=== PATIENT | female | born 1950 | race Caucasian/White ===

== ENCOUNTER 2019-08-09 12:12 | Inpatient (IN) | payer MEDICARE, OTHER, SELFPAY ==
[2019-08-09] VITALS (24 sets, daily range): BP systolic 101–141; BP diastolic 51–73; PULSE 66–99; RESP 13–22; TEMP 36.6–38.1; O2SAT 93–100; BMI 25.2; BMI 26.7
--- NOTE | 2019-08-09 12:24 | CTR_ITS ---
PROCEDURE INFORMATION: Exam: CT Lumbar Spine Without Contrast Exam date and time: 08/09/2019 1:46 PM Age: 69 years old Clinical indication: Low back pain; Prior surgery TECHNIQUE: Imaging protocol: Computed tomography images of the lumbar spine without contrast. Radiation optimization: All CT scans at this facility use at least one of these dose optimization techniques: automated exposure control; mA and/or kV adjustment per patient size (includes targeted exams where dose is matched to clinical indication); or iterative reconstruction. COMPARISON: MRI Lumbar Spine w/o [id number] 07/05/2018 1:56 PM RADIATION DOSE METRICS: Total DLP (mGy-cm): 1388.91 FINDINGS: Tubes, catheters and devices: Interval placement of metallic disc spacer at L4-L5. Vertebrae: Left L4-L5 laminectomy. Discs/Spinal canal/Neural foramina: Interval placement of L4-L5 posterior pedicular screws with vertical stabilization bars. Interval placement of bone graft material over the posterior lateral portions of the L4-L5 vertebrae. Vasculature: Calcification of the abdominal aorta and/or iliac arteries consistent with atherosclerotic vessel disease. Soft tissues: Unremarkable. CT/CT lumbar spine wo con* [id number] IMPRESSION: 1. Interval placement of L4-L5 posterior pedicular screws with vertical stabilization bars. 2. Interval placement of metallic disc spacer at L4-L5. 3. Interval placement of bone graft material over the posterior lateral portions of the L4-L5 vertebrae. 4. Left L4-L5 laminectomy. Radiation Dose CTDIVOL = (mGy): DLP = 1388.91 (mGy-cm)
--- NOTE | 2019-08-09 12:24 | CTR_ITS ---
PROCEDURE INFORMATION: Exam: CT Abdomen And Pelvis With Contrast Exam date and time: 08/09/2019 1:37 PM Age: 69 years old Clinical indication: Abdominal pain; Flank; Right TECHNIQUE: Imaging protocol: Computed tomography of the abdomen and pelvis with intravenous contrast. Radiation optimization: All CT scans at this facility use at least one of these dose optimization techniques: automated exposure control; mA and/or kV adjustment per patient size (includes targeted exams where dose is matched to clinical indication); or iterative reconstruction. Contrast material: VISI 320; Contrast volume: 95 ml; Contrast route: INTRAVENOUS (IV); COMPARISON: CR Hip 1v RIGHT wwo Pelvis [id number] 11/05/2014 3:21 PM RADIATION DOSE METRICS: Total DLP (mGy-cm): 675.29 FINDINGS: Lungs: Mild right basilar atelectasis and/or pneumonia. Liver: Normal. No mass. Gallbladder and bile ducts: Normal. No calcified stones. No ductal dilation. Pancreas: Normal. No ductal dilation. Spleen: 14.5 cm mild splenomegaly. Adrenals: Normal. No mass. Kidneys and ureters: Normal. No hydronephrosis. Stomach and bowel: Unremarkable. No obstruction. No mucosal thickening. Appendix: No evidence of appendicitis. Intraperitoneal space: Unremarkable. No free air. No significant fluid collection. Vasculature: Calcification of the abdominal aorta and/or iliac arteries consistent with atherosclerotic vessel disease. Lymph nodes: Calcified right hilar nodes and/or mediastinal nodes and/or lung granulomas consistent with old granulomatous disease. Bladder: Unremarkable as visualized. Reproductive: Status post hysterectomy. Bones/joints: Postoperative changes over the lumbar spine with metallic fixation and metallic artifact. Soft tissues: Unremarkable. Other findings: Examination is limited secondary to motion artifact. CT/CT abdomen pelvis w con* [id number] IMPRESSION: 14.5 cm mild splenomegaly. Radiation Dose CTDIVOL = (mGy): DLP = 675.29 (mGy-cm)
--- NOTE | 2019-08-09 12:59 | W.ED.BACK ---
HPI - Back Pain/Injury General: Chief Complaint: Back Pain/Injury Stated Complaint: FLANK PAIN Time Seen by Provider: 08/09/19 12:14 Source: patient Mode of arrival: ambulatory Limitations: no limitations History of Present Illness: HPI Narrative: Fernanda is a nice 69-year-old female who comes in complaining of pain across her lower back, lower abdominal pain. Denies any cough, shortness of breath but does admit to urinary frequency and urgency. She has had the symptoms for approximately 1 week and on Sunday, 4 days ago she saw Dr. Andrew Alfaro who placed her on Keflex for a UTI as she did test positive for this in the clinic. She states since then she is developed some diarrhea but denies any nausea or vomiting. She denies any vaginal discharge or bleeding. Patient states her pain is slightly worse and because of that she comes into the hospital for recheck. She is been unaware of any fevers or chills. Patient denies any other complaints or concerns. Associated symptoms: Reports abdominal pain, dysuria and urinary urgency; Deny chills, difficulty walking, fatigue, fever(s), hematuria, nausea, syncope or vomiting Review of Systems Const: Denies: fever(s), chills, body aches, fatigue, malaise or diaphoresis Eyes: Denies: change in vision, blurry vision, blind spots, photophobia, eye discharge or eye redness ENMT: Denies: throat pain, odynophagia, hoarseness, swelling of lips/tongue, oral sores, ear or mastoid pain, ear discharge, change in hearing or nasal discharge Card: Denies: chest pain, palpitations, irregular heart rhythm, edema, lightheadedness, syncope, pre-syncope, dyspnea on exertion or orthopnea Resp: Denies: dyspnea, productive cough, non-productive cough, wheezing, hemoptysis or chest congestion GI: Reports: abdominal pain; Denies: nausea, vomiting, hematemesis, coffee ground emesis, heartburn, constipation, GI cramping, hematochezia or melena : Reports: difficulty voiding, dysuria, urinary frequency, urinary urgency and urinary hesitancy; Denies: flank pain or hematuria Musc: Reports: back pain; Denies: neck pain, extremity pain, extremity swelling, joint pain, joint swelling, joint redness, joint warmth or joint stiffness Skin/Breast: Denies: rash, pruritus, erythema, skin tenderness or jaundice Neuro: Denies: headache(s), numbness in extremities, weakness in extremities, sensory changes, lack of coordination, difficulty walking, dizziness, vertigo, confusion, Slurred speech present or seizure-like activity Wilian/Lymph: Denies: easy bruising, easy bleeding, petechiae, purpura or enlarged lymph nodes All/Imm: Denies: urticaria, throat swelling, tongue swelling, facial swelling or acute wheezing PFSH ED PFSH: Medical History No pertinent past medical history Surgical History History of back surgery Family History Brother Lung cancer Other Diabetes Social History Smoking and tobacco status: former smoker Quit status (tobacco): has quit using tobacco Former quit date comment: October Alcohol intake: never Substance/Drug Use: never Lives independently: Yes Household members: spouse Marital status: Current occupational status: retired Physical Exam Const: COMMON NORMALS: no acute distress, patient oriented x3, no limitations, healthy appearing and well nourished GENERAL APPEARANCE: cooperative, well kempt and well developed HENMT: COMMON NORMALS: normocephalic, atraumatic, external ears normal, EAC's normal and Normal external nose present HEAD & SCALP: normal to inspection, normocephalic and atraumatic FACE & SINUS: normal facial exam and face symmetric NOSE: Normal external nose present and Normal nares present EXTERNAL EAR: Yes external ears normal EXTERNAL AUDITORY CANAL: EAC's normal MOUTH: Normal oral and palatal mucosa present, lip normal and tongue normal Eye: COMMON NORMALS: Equal, round and reactive pupils present and conjunctivae normal GENERAL EYE: appearance normal, both eyes and all related structures ALIGNMENT: Yes alignment normal PERIORBITAL: periorbital findings normal EYELID: eyelids normal CONJUNCTIVA: Yes conjunctivae normal SCLERA: sclerae normal PUPIL: Yes Equal, round and reactive pupils present Neck/C-Spine: COMMON NORMALS: full ROM, no lymphadenopathy, supple, no meningeal signs and no JVD GENERAL: Yes normal visual inspection and Yes trachea midline Chest: COMMONS NORMALS: normal inspection of the chest and normal palpation of entire chest wall Resp: COMMON NORMALS: normal respiratory effort, No retractions and No use of accessory muscles EFFORT & INSPECTION: Yes able to speak in complete sentences and Yes symmetric chest movement AUSCULTATION: no crackles, no rales, no rhonchi and no wheezes Cardio: COMMON NORMALS: no JVD, regular rate, regular rhythm, S1 normal heart sound present and S2 normal heart sound present RATE: regular rate RHYTHM: regular rhythm HEART SOUNDS: S1 normal heart sound present, S2 normal heart sound present, no click, no gallops, no murmurs, no rubs and abnormal split S2 GI: COMMON NORMALS: Soft to palpation and No hepatosplenomegaly present PALPATION: Yes Soft to palpation, No Tenderness to palpation present (GI), No Guarding due to palpation present (GI), No Rigid due to palpation, Yes No hepatosplenomegaly present, No Hernia present, No Palpable mass present and No Pulsatile mass present : COMMON NORMALS: Yes no CVA tenderness BLADDER/KIDNEY EXAM: Yes no CVA tenderness EXTERNAL FEMALE EXAM: No Hernia present Back/Pelvis: COMMON NORMALS: no CVA tenderness, thoracic and lumbar spine normal to inspection, no thoracic nor lumbar tenderness and thoraco-lumbar ROM normal Extremity: COMMON NORMALS: normal to inspection, full ROM, capillary refill normal, no joint enlargement, no clubbing, cyanosis or edema and no calf tenderness Neuro: COMMON NORMALS: patient oriented x3, CN's II-XII intact bilaterally, moves all extremities, no focal motor deficits and no sensory deficits noted MENINGEAL SIGNS: Yes no meningeal signs SPEECH: speech normal Psych: COMMON NORMALS: mental status grossly normal, Normal thought process present, cooperative, normal affect, speech normal and activity/motor behavior normal APPEARANCE: Yes well kempt SPEECH: Yes normal speech THOUGHT PROCESS: Normal thought process present Skin: COMMON NORMALS: no rashes or lesions noted, turgor normal, no jaundice, no petechiae and no mottling GENERAL SKIN EXAM: no rashes or lesions noted and turgor normal Course Vital Signs: Vital signs: Vital Signs Temperature 100.5 F H 08/09/19 12:33 Pulse Rate 82 07/04/20 12:40 Respiratory Rate 17 08/09/19 16:36 Blood Pressure 133/70 08/09/19 12:40 Pulse Oximetry 96 08/09/19 16:36 MDM - Back Pain/Injury MDM Narrative: Medical decision making narrative: The patient appears to have a tickborne illness type pattern to her labs. The case was reviewed in its entirety with Dr. Gaviria and he is agreeable to admission. Lab Data: Attestation: I reviewed the patient's lab results. Labs: Lab Results 08/09/19 08/09/19 08/09/19 Range/Units 12:57 12:57 12:57 WBC 2.3 L (4.0-10.0) 10^3/ uL RBC 4.34 (4.1-5.3) 10^6/u L Hgb 13.3 (11.5-15.3) g/dL Hct 38.4 (37.0-47.0) % MCV 88.5 (81-99) fL MCH 30.6 (28.0-34.0) pg MCHC 34.6 (30.0-36.0) g/dL RDW 12.9 (12.1-15.1) % Plt Count 31 L (130-400) 10^3/c mm MPV 13.0 H (7.4-10.4) fL Neut % (Auto) 36.3 % Lymph % (Auto) 55.6 % [place] % (Auto) 6.8 % Eos % (Auto) 0.0 % Baso % (Auto) 0.9 % Neut # (Auto) 0.9 L (1.8-7.7) 10^3/u L Lymph # (Auto) 1.3 (0.8-4.8) 10^3/u L [place] # (Auto) 0.2 (0.2-0.9) 10^3/u L Eos # (Auto) 0.0 (0.0-0.8) 10^3/u L Baso # (Auto) 0.0 (0.0-0.1) 10^3/u L Nucleated RBC % (a uto) 0 % Nucleated RBCs # 0.0 /100WBC Sodium 121 L (136-145) mmol/L Potassium 3.6 (3.5-5.1) mmol/L Chloride 87 L (98-107) mmol/L Carbon Dioxide 20 L (22-29) mmol/L Anion Gap 17.6 (5-19) BUN 16 (8-23) mg/dL Creatinine 1.0 H (0.5-0.9) mg/dL GFR Calculation 55.3 L (90-130) mL/min Glucose 99 (65-115) mg/dL Calculated Osmolal ity 248 L (285-295) mOsm/k g Lactic Acid 1.0 (0.5-2.2) mmol/L Calcium 8.6 (8.5-10.5) mg/dL Total Bilirubin 0.6 (0.15-1.2) mg/dL AST 116 H (0-32) U/L ALT 46 H (0-33) U/L Alkaline Phosphata se 270 H (35-105) IU/L Creatine Kinase (26-192) U/L Total Protein 6.1 L (6.6-8.7) g/dL Albumin 3.7 (3.5-5.2) g/dL Globulin 2.4 (1.3-4.6) g/dL Lipase 38 (13-60) U/L Urine Color (Yellow) Urine Appearance (CLEAR) Urine pH (5-7) Ur Specific Gravit y (1.005-1.030) Urine Protein (Negative) Urine Glucose (UA) (Normal) Urine Ketones (Negative) Urine Blood (Negative) Urine Nitrate (Negative) Urine Bilirubin (NEGATIVE) Urine Urobilinogen (Negative) mg/dL Ur Leukocyte Yudith ase (Negative) Urine RBC (0-2) /hpf Urine WBC (0-5) /hpf Ur Squamous Epith Cells (0-5) Urine Bacteria (NONE) 08/09/19 08/09/19 Range/Units 12:57 13:45 WBC (4.0-10.0) 10^3/ uL RBC (4.1-5.3) 10^6/u L Hgb (11.5-15.3) g/dL Hct (37.0-47.0) % MCV (81-99) fL MCH (28.0-34.0) pg MCHC (30.0-36.0) g/dL RDW (12.1-15.1) % Plt Count (130-400) 10^3/c mm MPV (7.4-10.4) fL Neut % (Auto) % Lymph % (Auto) % [place] % (Auto) % Eos % (Auto) % Baso % (Auto) % Neut # (Auto) (1.8-7.7) 10^3/u L Lymph # (Auto) (0.8-4.8) 10^3/u L [place] # (Auto) (0.2-0.9) 10^3/u L Eos # (Auto) (0.0-0.8) 10^3/u L Baso # (Auto) (0.0-0.1) 10^3/u L Nucleated RBC % (a uto) % Nucleated RBCs # /100WBC Sodium (136-145) mmol/L Potassium (3.5-5.1) mmol/L Chloride (98-107) mmol/L Carbon Dioxide (22-29) mmol/L Anion Gap (5-19) BUN (8-23) mg/dL Creatinine (0.5-0.9) mg/dL GFR Calculation (90-130) mL/min Glucose (65-115) mg/dL Calculated Osmolal ity (285-295) mOsm/k g Lactic Acid (0.5-2.2) mmol/L Calcium (8.5-10.5) mg/dL Total Bilirubin (0.15-1.2) mg/dL AST (0-32) U/L ALT (0-33) U/L Alkaline Phosphata se (35-105) IU/L Creatine Kinase 124 (26-192) U/L Total Protein (6.6-8.7) g/dL Albumin (3.5-5.2) g/dL Globulin (1.3-4.6) g/dL Lipase (13-60) U/L Urine Color Yellow (Yellow) Urine Appearance Clear (CLEAR) Urine pH 6.5 (5-7) Ur Specific Gravit y 1.010 (1.005-1.030) Urine Protein 1+ H (Negative) Urine Glucose (UA) Norm (Normal) Urine Ketones 1+ H (Negative) Urine Blood 2+ H (Negative) Urine Nitrate Negative (Negative) Urine Bilirubin Neg (NEGATIVE) Urine Urobilinogen Norm (Negative) mg/dL Ur Leukocyte Yudith ase Negative (Negative) Urine RBC 0-4 H (0-2) /hpf Urine WBC None (0-5) /hpf Ur Squamous Epith Cells 0-4 H (0-5) Urine Bacteria Trace (NONE) Imaging Data^: CXR: My impression: No acute cardiopulmonary findings. CT Abd/Pel: Radiologist's impression: [address] [address] [address] Scan Report Signed Patient: Yenifer Price Unit #: [id number] : 1950 Age/Sex: 69 / F ADM Date: 08/09/19 Loc: ER Room/Bed: Attending Dr: Ordering Provider/Ordering MD: Macy Pascal DO Date of Service: 08/09/19 Procedure(s): CT abdomen pelvis w con* [id number] Accession Number(s): [id number] Report Number: [id number] PROCEDURE INFORMATION: Exam: CT Abdomen And Pelvis With Contrast Exam date and time: 08/09/2019 1:37 PM Age: 69 years old Clinical indication: Abdominal pain; Flank; Right TECHNIQUE: Imaging protocol: Computed tomography of the abdomen and pelvis with intravenous contrast. Radiation optimization: All CT scans at this facility use at least one of these dose optimization techniques: automated exposure control; mA and/or kV adjustment per patient size (includes targeted exams where dose is matched to clinical indication); or iterative reconstruction. Contrast material: VISI 320; Contrast volume: 95 ml; Contrast route: INTRAVENOUS (IV); COMPARISON: CR Hip 1v RIGHT wwo Pelvis [id number] 11/05/2014 3:21 PM RADIATION DOSE METRICS: Total DLP (mGy-cm): 675.29 FINDINGS: Lungs: Mild right basilar atelectasis and/or pneumonia. Liver: Normal. No mass. Gallbladder and bile ducts: Normal. No calcified stones. No ductal dilation. Pancreas: Normal. No ductal dilation. Spleen: 14.5 cm mild splenomegaly. Adrenals: Normal. No mass. Kidneys and ureters: Normal. No hydronephrosis. Stomach and bowel: Unremarkable. No obstruction. No mucosal thickening. Appendix: No evidence of appendicitis. Intraperitoneal space: Unremarkable. No free air. No significant fluid collection. Vasculature: Calcification of the abdominal aorta and/or iliac arteries consistent with atherosclerotic vessel disease. Lymph nodes: Calcified right hilar nodes and/or mediastinal nodes and/or lung granulomas consistent with old granulomatous disease. Bladder: Unremarkable as visualized. Reproductive: Status post hysterectomy. Bones/joints: Postoperative changes over the lumbar spine with metallic fixation and metallic artifact. Soft tissues: Unremarkable. Other findings: Examination is limited secondary to motion artifact. CT/CT abdomen pelvis w con* [id number] IMPRESSION: 14.5 cm mild splenomegaly. Radiation Dose CTDIVOL = (mGy): DLP = 675.29 (mGy-cm) Dictated By: Sulaiman Hurley MD Signed By: Sulaiman Hurley MD Signed Date/Time: 08/09/191427 DD/ 27 CT Lumbar Spine: Radiologist's impression: [address] [place] [address] CT Scan Report Signed Patient: Yenifer Price Unit #: [id number] : 1950 Age/Sex: 69 / F ADM Date: 08/09/19 Loc: ER Room/Bed: Attending Dr: Ordering Provider/Ordering MD: Macy Pascal DO Date of Service: 08/09/19 Procedure(s): CT lumbar spine wo con* [id number] Accession Number(s): [id number] Report Number: [id number] PROCEDURE INFORMATION: Exam: CT Lumbar Spine Without Contrast Exam date and time: 08/09/2019 1:46 PM Age: 69 years old Clinical indication: Low back pain; Prior surgery TECHNIQUE: Imaging protocol: Computed tomography images of the lumbar spine without contrast. Radiation optimization: All CT scans at this facility use at least one of these dose optimization techniques: automated exposure control; mA and/or kV adjustment per patient size (includes targeted exams where dose is matched to clinical indication); or iterative reconstruction. COMPARISON: MRI Lumbar Spine w/o [id number] 07/05/2018 1:56 PM RADIATION DOSE METRICS: Total DLP (mGy-cm): 1388.91 FINDINGS: Tubes, catheters and devices: Interval placement of metallic disc spacer at L4-L5. Vertebrae: Left L4-L5 laminectomy. Discs/Spinal canal/Neural foramina: Interval placement of L4-L5 posterior pedicular screws with vertical stabilization bars. Interval placement of bone graft material over the posterior lateral portions of the L4-L5 vertebrae. Vasculature: Calcification of the abdominal aorta and/or iliac arteries consistent with atherosclerotic vessel disease. Soft tissues: Unremarkable. CT/CT lumbar spine wo con* [id number] IMPRESSION: 1. Interval placement of L4-L5 posterior pedicular screws with vertical stabilization bars. 2. Interval placement of metallic disc spacer at L4-L5. 3. Interval placement of bone graft material over the posterior lateral portions of the L4-L5 vertebrae. 4. Left L4-L5 laminectomy. Radiation Dose CTDIVOL = (mGy): DLP = 1388.91 (mGy-cm) Dictated By: Sulaiman Hurley MD Signed By: Sulaiman Hurley MD Signed Date/Time: 08/09/191425 DD/ 24 Discharge Plan Discharge Patient Disposition: Placed in Observation Admit Provider: Hardik Gaviria Clinical Impression: Thrombocytopenia Fever Qualifiers: Fever type: unspecified Qualified Code(s): R50.9 - Fever, unspecified Leukopenia Qualifiers: Leukopenia type: unspecified Qualified Code(s): D72.819 - Decreased white blood cell count, unspecified Condition: Stable Referrals: Andrew Alfaro DO [Primary Care Provider] - Coding Level of Care Code 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
[2019-08-09 13:22] LABS: Basophils % 0.9 %; Hematocrit 38.4 % (37.0-47.0); Hemoglobin 13.3 g/dL (11.5-15.3); Lymphocytes # 1.3 10^3/uL (0.8-4.8); Lymphocytes % 55.6 %; Mean Corpuscular HGB Conc 34.6 g/dL (30.0-36.0); Mean Corpuscular Hemoglobin 30.6 pg (28.0-34.0); Mean Corpuscular Volume 88.5 fL (81-99); Monocytes # 0.2 10^3/uL (0.2-0.9); Monocytes % 6.8 %; Neutrophils # 0.9 10^3/uL (1.8-7.7); Neutrophils % 36.3 %; Nucleated Red Blood Cells % 0 %; Platelet Count 31 10^3/cmm (130-400); Red Blood Count 4.34 10^6/uL (4.1-5.3); Red Cell Distribution Width 12.9 % (12.1-15.1); White Blood Count 2.3 10^3/uL (4.0-10.0)
[2019-08-09 13:30] LABS: Alanine Aminotransferase 46 U/L (0-33); Albumin Level 3.7 g/dL (3.5-5.2); Alkaline Phosphatase 270 IU/L (35-105); Anion Gap 17.6 (5-19); Aspartate Amino Transferase 116 U/L (0-32); Blood Urea Nitrogen 16 mg/dL (8-23); Calcium 8.6 mg/dL (8.5-10.5); Carbon Dioxide 20 mmol/L (22-29); Chloride 87 mmol/L (98-107); Globulin 2.4 g/dL (1.3-4.6); Glomerular Filtration Rate 55.3 mL/min (90-130); Glucose 99 mg/dL (65-115); Lipase 38 U/L (13-60); Osmolality Calculated 248 mOsm/kg (285-295); Potassium 3.6 mmol/L (3.5-5.1); Sodium 121 mmol/L (136-145); Total Bilirubin 0.6 mg/dL (0.15-1.2); Total Protein 6.1 g/dL (6.6-8.7)
--- NOTE | 2019-08-09 13:42 | XRR_ITS ---
PROCEDURE INFORMATION: Exam: XR Chest, 1 View Exam date and time: 08/09/2019 1:42 PM Age: 69 years old Clinical indication: Fever TECHNIQUE: Imaging protocol: XR of the chest Views: 1 view. COMPARISON: CR Chest 2 views* [id number] 01/22/2018 11:53 AM FINDINGS: Lungs: Stable COPD . Possible 1.6 x 2.6 cm pulmonary nodule over the medial aspect right lung apex. Correlation with CT chest may be helpful. Pleural space: Unremarkable. No pleural effusion. No pneumothorax. Heart/Mediastinum: Unremarkable. No cardiomegaly. Bones/joints: Unremarkable. Other findings: Stable post operative changes over the cervical spine. XR/XR chest 1V portable [id number] IMPRESSION: Possible 1.6 x 2.6 cm pulmonary nodule over the medial aspect right lung apex. Correlation with CT chest may be helpful.
[2019-08-09] MEDS: ondansetron 2 mg/ML SDV 2 mL 4 MG IVP ×2 (13:56→13:58)
[2019-08-09] MEDS: morphine 4 mg/mL SDV 1 mL IVP ×2 (13:57→16:36)
[2019-08-09] MEDS: sodium chloride 0.9% 1,000 ML 999 ML IV (13:58)
[2019-08-09] MEDS: iodixanol 320 mg/mL 100mL Btl IV (14:10)
[2019-08-09 14:27] LABS: Slide Review Slide Review Perform
[2019-08-09 14:50] LABS: Bilirubin Urine Neg (NEGATIVE); Blood Urine 2+ (Negative); Glucose Urine UA Norm (Normal); Ketones Urine 1+ (Negative); Leukocyte Esterase Urine Negative (Negative); Nitrate Urine Negative (Negative); Protein Urine 1+ (Negative); Urine Appearance Clear (CLEAR); Urine Color Yellow (Yellow); Urobilinogen Urine Norm (Negative); pH Urine 6.5 (5-7)
[2019-08-09 15:03] LABS: Add Urine Culture? No; Bacteria Urine TRACE; RBC Urine 0-4 /hpf (0-2); Squamous Epithelial Cell Urine 0-4 (0-5)
[2019-08-09] MEDS: doxycycline 100 MG in sodium chloride 0.9% (plus) 100 ML IV (16:05)
[2019-08-09] MEDS: piperacillin-tazobactam 3.375 GM in sodium chloride 0.9% (plus) 50 ML IV (16:35)
[2019-08-09 16:45] LABS: LAB Peripheral Smear Sent for Review
--- NOTE | 2019-08-09 17:01 | PM.HP ---
Providers/Chief Complaint Admitting Physician: Hardik Gaviria Primary Care Provider: Andrew Alfaro DO Chief Complaint: FLANK PAIN History of Present Illness Yenifer Price is a pleasant 69 year old lady without significant past medical history apart from back surgery, has been experiencing malaise starting around Sunday, including fever recurrence going up to about 101. Due to this she was assessed by her primary care provider, and was prescribed Keflex for suspected urinary tract infection as she reported dark urine. She was tested for coronavirus as well, although was told would be getting a call likely on Sunday with the results, so far nobody had cold. She reports generalized muscle aches. She has been growing a small puppy at home, she denies any cat scratches, however. She has been going outside and has been finding multiple small ticks on herself. Review of Systems Const: Reports: fever(s), body aches, fatigue, malaise and other (Mild headache.) Eyes: Denies: change in vision or eye redness ENMT: Denies: throat pain, oral sores or ear or mastoid pain Card: Denies: chest pain, edema, pre-syncope or dyspnea on exertion Resp: Denies: dyspnea, productive cough, change in phlegm color or hemoptysis GI: Reports: diarrhea; Denies: abdominal pain, nausea, vomiting, constipation, hematochezia or melena : Denies: flank pain, urinary frequency or hematuria Musc: Denies: back pain, joint swelling or joint redness Skin/Breast: Denies: rash, sores or new lesions Neuro: Denies: headache(s), numbness in extremities, weakness in extremities, dizziness, confusion or seizure-like activity Endo: Denies: polyuria or polydipsia Wilian/Lymph: Denies: easy bleeding or purpura All/Imm: Denies: urticaria, throat swelling or tongue swelling Medications/Allergies Home Medications Medication Instructions Recorded Confirmed Last Taken Type cephalexin 500 mg PO TID 08/09/19 08/09/19 08/09/19 History Allergies Allergy/AdvReac Type Severity Reaction Status Date / Time codeine Allergy Unknown Unknown Verified 08/09/19 16:04 PFSH Acute PFSH: Medical History No pertinent past medical history Surgical History History of back surgery Family History Brother Lung cancer Other Diabetes Social History Smoking and tobacco status: former smoker Quit status (tobacco): has quit using tobacco Former quit date comment: October Alcohol intake: never Substance/Drug Use: never Lives independently: Yes Household members: spouse Marital status: Current occupational status: retired Vitals/I&O/Wt Last Vital Signs Temp 100.5 F H 08/09/19 12:33 Pulse 82 08/09/19 12:40 Resp 17 08/09/19 16:36 BP 133/70 08/09/19 12:40 Pulse Ox 96 08/09/19 16:36 Weight last 48 hrs Weight 62.596 kg Physical Exam Const: COMMON NORMALS: no acute distress and patient oriented x3 HENMT: COMMON NORMALS: oropharynx normal Neck/C-Spine: COMMON NORMALS: no JVD Resp: COMMON NORMALS: normal respiratory effort and clear to auscultation bilaterally AUSCULTATION: clear to auscultation bilaterally Cardio: COMMON NORMALS: no JVD, regular rhythm, S1 normal heart sound present, S2 normal heart sound present and No murmurs present (Cardio) RHYTHM: regular rhythm HEART SOUNDS: S1 normal heart sound present and S2 normal heart sound present GI: COMMON NORMALS: Normal to inspection, nondistended, normoactive bowel sounds present, Soft to palpation and non-tender PALPATION: Yes Soft to palpation Extremity: COMMON NORMALS: no joint enlargement and no pedal edema Neuro: COMMON NORMALS: patient oriented x3 and moves all extremities Skin: COMMON NORMALS: no rashes or lesions noted GENERAL SKIN EXAM: no rashes or lesions noted Data : 08/09/19 12:57 08/09/19 12:57 Micro: Microbiology 08/09/19 12:50 Blood Culture - Preliminary Blood SPECIMEN COLLECTED 08/09/19 12:57 Blood Culture - Preliminary Blood SPECIMEN COLLECTED A&P Assessment and plan (1) Fever: Fever, here up to 100.5, leukopenia WBC 2.3. Also with noted transaminitis, mild splenomegaly, thrombocytopenia. With multiple recent tick bites. Suspected tickborne illness. Did report an episode of diarrhea. T bili is normal. Reports dark urine. Hemoglobin is normal. Request LDH, haptoglobin. Peripheral smear. Tick panel is requested. Will request stool studies for bacterial panel, ova and parasites. WBC. Blood culture. Continue only doxycycline for now. Received a dose of Zosyn. Status: Acute Qualifiers: Fever type: unspecified Qualified Code(s): R50.9 - Fever, unspecified (2) Leukopenia: As above. Status: Acute Qualifiers: Leukopenia type: unspecified Qualified Code(s): D72.819 - Decreased white blood cell count, unspecified (3) Thrombocytopenia: As above. With mild splenomegaly. Only CD for DVT prophylaxis. Monitor level. Follow-up peripheral smear. Status: Acute (4) Transaminitis: 2-1 ratio, but does not drink any alcohol. Check CK. Monitor levels. Check hepatitis panel. No biliary issues noted on CT abdomen pelvis. Status: Acute (5) Hyponatremia: Regular diet for now. Will recheck. Will hold further IV hydration for now. Chronicity is unclear. At this time is not symptomatic. Status: Acute (6) Person under investigation for COVID-19: COVID-19 test sent out last week. States that was told may receive results on Sunday, but did not receive any phone call. ER physician attempted to reach out to her PCP but PCP was not aware of COVID 19 results. Patient has been are not aware what lab the test was sent to. We will keep under isolation for now. Will need to investigate tomorrow or last resort on Sunday with regards to test results. Status: Acute Attestations Medical Necessity Statement*: Admission of over 2 midnights continued for assessment management of acute illness with fever, leukopenia, thrombocytopenia, transaminitis, hyponatremia in this previously healthy 69-year-old lady. 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
[2019-08-09 17:04] LABS: Creatine Phosphokinase 124 U/L (26-192)
[2019-08-09 18:15] LABS: HIV 1 & 2 Antibody Non-Reactive (Non-Reactiv); HIV 1 & 2 Antigen Non-Reactive (Non-Reactiv)
[2019-08-09 18:16] LABS: Hepatitis A Antibody IgM Non-Reactive (Nonreactive); Hepatitis B Core IgM Non-Reactive (Nonreactive); Hepatitis B Surface Antigen Non-Reactive (Nonreactive)
[2019-08-09 19:03] LABS: Hepatitis C Virus Antibody Non-Reactive (Nonreactive)
[2019-08-09 20:16] LABS: Lactate Dehydrogenase 671 U/L (135-214)
[2019-08-10] VITALS (40 sets, daily range): BP systolic 82–151; BP diastolic 60–78; PULSE 63–110; RESP 14–32; TEMP 36.4–37.1; O2SAT 92–99
[2019-08-10 04:07] LABS: INR 0.88 (0.8-1.2)
[2019-08-10 04:08] LABS: Partial Thromboplastin Time 32.5 SECONDS (23.9-36.7)
[2019-08-10 04:21] LABS: Alanine Aminotransferase 59 U/L (0-33); Albumin Level 3.6 g/dL (3.5-5.2); Alkaline Phosphatase 247 IU/L (35-105); Anion Gap 18.6 (5-19); Aspartate Amino Transferase 121 U/L (0-32); Blood Urea Nitrogen 17 mg/dL (8-23); Calcium 8.8 mg/dL (8.5-10.5); Carbon Dioxide 19 mmol/L (22-29); Chloride 93 mmol/L (98-107); Globulin 2.3 g/dL (1.3-4.6); Glomerular Filtration Rate 55.3 mL/min (90-130); Glucose 87 mg/dL (65-115); Osmolality Calculated 260 mOsm/kg (285-295); Potassium 3.6 mmol/L (3.5-5.1); Sodium 127 mmol/L (136-145); Total Bilirubin 0.5 mg/dL (0.15-1.2); Total Protein 5.9 g/dL (6.6-8.7)
[2019-08-10 07:55] LABS: Basophils # 0.1 10^3/uL (0.0-0.1); Basophils % 2.1 %; Hemoglobin 13.1 g/dL (11.5-15.3); Lymphocytes # 2.6 10^3/uL (0.8-4.8); Lymphocytes % 67.4 %; Mean Corpuscular HGB Conc 34.5 g/dL (30.0-36.0); Mean Corpuscular Hemoglobin 30.8 pg (28.0-34.0); Mean Corpuscular Volume 89.4 fL (81-99); Monocytes # 0.3 10^3/uL (0.2-0.9); Monocytes % 6.7 %; Neutrophils # 0.9 10^3/uL (1.8-7.7); Neutrophils % 23.5 %; Nucleated Red Blood Cells % 0 %; Platelet Count 38 10^3/cmm (130-400); Red Blood Count 4.25 10^6/uL (4.1-5.3); Red Cell Distribution Width 13.3 % (12.1-15.1); White Blood Count 3.9 10^3/uL (4.0-10.0)
--- NOTE | 2019-08-10 09:17 | PM.PN ---
Subjective Subjective: Interval history: This morning she states she is actually feeling better. Diffuse muscle aches have let up. She is still having some ill-defined aching sensation in her back. Says that stools are firming up. Has had a difficult time to provide a stool sample is not mixed with urine. Vitals/I&O/Wt Last Vital Signs Temp 98.3 F 08/10/19 03:30 Pulse 79 08/10/19 05:30 Resp 23 H 08/10/19 05:30 BP 82/64 08/10/19 05:30 Pulse Ox 97 08/10/19 05:30 08/09/19 08/10/19 08/10/19 22:59 06:59 14:59 Intake Total 240 / 240 360 / 600 Output Total 500 / 500 Balance -260 / -260 360 / 100 Weight last 48 hrs Weight 66.281 kg Weight 62.596 kg Physical Exam Const: COMMON NORMALS: no acute distress and patient oriented x3 HENMT: COMMON NORMALS: oropharynx normal Neck/C-Spine: COMMON NORMALS: no JVD Resp: COMMON NORMALS: normal respiratory effort and clear to auscultation bilaterally AUSCULTATION: clear to auscultation bilaterally Cardio: COMMON NORMALS: no JVD, regular rhythm, S1 normal heart sound present, S2 normal heart sound present and No murmurs present (Cardio) RHYTHM: regular rhythm HEART SOUNDS: S1 normal heart sound present and S2 normal heart sound present GI: COMMON NORMALS: Normal to inspection, nondistended, normoactive bowel sounds present, Soft to palpation and non-tender PALPATION: Yes Soft to palpation Extremity: COMMON NORMALS: no joint enlargement and no pedal edema Neuro: COMMON NORMALS: patient oriented x3 and moves all extremities Skin: OTHER: Few faint petechiae on lower extremities. Data : 08/10/19 07:07 08/10/19 03:12 Micro: Microbiology 08/09/19 12:50 Blood Culture - Preliminary Blood SPECIMEN COLLECTED 08/09/19 12:57 Blood Culture - Preliminary Blood SPECIMEN COLLECTED A&P Assessment and plan (1) Fever: Resolved. On presentation fever, here up to 100.5, leukopenia WBC 2.3. Also with noted transaminitis, mild splenomegaly, thrombocytopenia. With multiple recent tick bites. Suspected tickborne illness. However, discussed with her cannot entirely exclude TTP until we assess peripheral smear. She does have some hemolytic anemia. Does report diarrhea, although with stools firming up now. We have not been able to get a stool sample just yet. Requested Ramos catheter be placed temporarily if needed to collect a sample. She understands TTP is potentially dangerous condition, may require transfer to another facility for additional treatment. At this time since she is feeling better, and we are seeing stabilization of her laboratory findings and vital signs, she prefers to continue care here. T bili is normal. Reports dark urine. Hemoglobin is normal. LDH, haptoglobin suggestive of hemolysis. Peripheral smear. ALEJANDRA. Tick panel is requested. Stool studies for bacterial panel, ova and parasites. WBC. Blood culture. Continue only doxycycline for now. Received a dose of Zosyn. Status: Acute Qualifiers: Fever type: unspecified Qualified Code(s): R50.9 - Fever, unspecified (2) Leukopenia: With improvement. As above. Status: Acute Qualifiers: Leukopenia type: unspecified Qualified Code(s): D72.819 - Decreased white blood cell count, unspecified (3) Thrombocytopenia: With mild improvement today. As above. With mild splenomegaly. Only SCD for DVT prophylaxis. Monitor level. Follow-up peripheral smear. Status: Acute (4) Transaminitis: About the same, perhaps slight worsening. 2-1 ratio, but does not drink any alcohol. CK normal. Monitor levels. Hepatitis panel negative. No biliary issues noted on CT abdomen pelvis. Discussed with her. Status: Acute (5) Hyponatremia: Discussed with her that sodium is showing good improvement. For now continue regular diet. Hold off any additional IV hydration. Reassess level. Status: Acute (6) Person under investigation for COVID-19: I did not see the COVID-19 test listed under P[facility], and our lab is not able to access the results from [employer]. They or PCP office may need to be called on Sunday. Patient is not sure which lab it was sent to. We will keep under isolation for now. Status: Acute Attestations Medical Necessity Statement*: Continue admission at this time for assessment management of infectious condition suspected to be tickborne, and additional evaluation for hematologic problems, with severe thrombocytopenia, hyponatremia. 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
[2019-08-10] MEDS: acetaminophen 325 mg Tablet 650 MG PO (17:20)
--- NOTE | 2019-08-10 18:36 | PC.NURSE ---
PASSCODE SET UP [id number] WITH PT'S FAMILY
[2019-08-11] VITALS (13 sets, daily range): BP systolic 108–140; BP diastolic 63–70; PULSE 66–92; RESP 17–22; TEMP 36.5–36.9; O2SAT 93–98
[2019-08-11 04:05] LABS: Basophils # 0.1 10^3/uL (0.0-0.1); Basophils % 1.4 %; Hematocrit 38.5 % (37.0-47.0); Hemoglobin 13.1 g/dL (11.5-15.3); Lymphocytes # 5.7 10^3/uL (0.8-4.8); Lymphocytes % 82.6 %; Mean Corpuscular Hemoglobin 29.6 pg (28.0-34.0); Mean Corpuscular Volume 87.1 fL (81-99); Mean Platelet Volume 13.3 fL (7.4-10.4); Monocytes # 0.4 10^3/uL (0.2-0.9); Monocytes % 5.9 %; Nucleated Red Blood Cells % 0 %; Platelet Count 57 10^3/cmm (130-400); Positive M 1; Red Blood Count 4.42 10^6/uL (4.1-5.3); Red Cell Distribution Width 13.2 % (12.1-15.1)
[2019-08-11 04:22] LABS: Alanine Aminotransferase 54 U/L (0-33); Albumin Level 3.7 g/dL (3.5-5.2); Alkaline Phosphatase 222 IU/L (35-105); Anion Gap 15.7 (5-19); Aspartate Amino Transferase 98 U/L (0-32); Blood Urea Nitrogen 12 mg/dL (8-23); Carbon Dioxide 24 mmol/L (22-29); Chloride 99 mmol/L (98-107); Globulin 2.2 g/dL (1.3-4.6); Glomerular Filtration Rate 62.5 mL/min (90-130); Glucose 98 mg/dL (65-115); Osmolality Calculated 276 mOsm/kg (285-295); Potassium 3.7 mmol/L (3.5-5.1); Sodium 135 mmol/L (136-145); Total Bilirubin 0.4 mg/dL (0.15-1.2); Total Protein 5.9 g/dL (6.6-8.7)
[2019-08-11 04:39] LABS: Neutrophils # 0.7 10^3/uL (1.8-7.7); Slide Review Slide Review Perform
[2019-08-11] MEDS: doxycycline 100 mg Tablet PO ×2 (07:51→18:11)
[2019-08-11 07:53] LABS: LAB Peripheral Smear Sent for Review
--- NOTE | 2019-08-11 17:15 | PM.PN ---
Subjective Subjective: Interval history: This morning patient states that she is doing much better, her myalgias have significantly improved, no fevers, she does state [place], and commonly picks ticks off of herself, denies eating any raw meat, no new medications, Vitals/I&O/Wt Last Vital Signs Temp 97.7 F 08/11/19 11:00 Pulse 77 08/11/19 14:46 Resp 18 08/11/19 14:46 BP 132/70 08/11/19 14:46 Pulse Ox 96 08/11/19 14:46 08/11/19 08/11/19 08/11/19 06:59 14:59 22:59 Intake Total 1040 / 1040 Output Total 900 / 2700 900 / 900 Balance -900 / -932 140 / 140 Weight last 48 hrs Weight 66.224 kg Weight 66.281 kg Physical Exam Const: COMMON NORMALS: no acute distress and patient oriented x3 HENMT: COMMON NORMALS: normocephalic HEAD & SCALP: normocephalic Neck/C-Spine: COMMON NORMALS: no JVD Resp: COMMON NORMALS: normal respiratory effort, No retractions, No use of accessory muscles and clear to auscultation bilaterally AUSCULTATION: clear to auscultation bilaterally Cardio: COMMON NORMALS: no JVD, regular rate, regular rhythm, S1 normal heart sound present and S2 normal heart sound present RATE: regular rate RHYTHM: regular rhythm HEART SOUNDS: S1 normal heart sound present and S2 normal heart sound present GI: COMMON NORMALS: Normal to inspection, nondistended, normoactive bowel sounds present, Soft to palpation, non-tender, No hepatosplenomegaly present, no masses and no bruits PALPATION: Yes Soft to palpation and Yes No hepatosplenomegaly present Extremity: COMMON NORMALS: capillary refill normal, no clubbing, cyanosis or edema, no calf tenderness and no pedal edema Neuro: COMMON NORMALS: patient oriented x3 Psych: COMMON NORMALS: mental status grossly normal Data : 08/11/19 03:44 08/11/19 03:44 Micro: Microbiology 08/10/19 09:23 Parasite Antigen Panel - Final Stool Routine Collection 08/09/19 12:50 Blood Culture - Preliminary Blood NEGATIVE TO DATE 08/09/19 12:57 Blood Culture - Preliminary Blood NEGATIVE TO DATE 08/10/19 09:23 Enteric Pathogens (PCR) - Final Stool Routine Collection A&P Assessment and plan (1) Fever: Fever, here up to 100.5 on 08/09/2019 afebrile since then, leukopenia resolving 7.0. Also with noted transaminitis, mild splenomegaly, thrombocytopenia. With multiple recent tick bites. Suspected tickborne illness. Did report an episode of diarrhea. Start doxycycline T bili is normal. Reports dark urine. Hemoglobin is normal. Request LDH, haptoglobin. Peripheral smear. Tick panel is requested. Will request stool studies for bacterial panel, ova and parasites. WBC. Blood culture. Status: Acute Qualifiers: Fever type: unspecified Qualified Code(s): R50.9 - Fever, unspecified (2) Leukopenia: Resolving Status: Acute Qualifiers: Leukopenia type: unspecified Qualified Code(s): D72.819 - Decreased white blood cell count, unspecified (3) Thrombocytopenia: As above. With mild splenomegaly. Only CD for DVT prophylaxis. Monitor level. Currently improving to 57,000 follow-up peripheral smear. Status: Acute (4) Transaminitis: 2-1 ratio, but does not drink any alcohol. Check CK. Monitor levels. Hepatitis panel within normal limits. HIV panel within normal limits. No biliary issues noted on CT abdomen pelvis. Status: Acute (5) Hyponatremia: Improved to 135, regular diet for now. Will recheck. Will hold further IV hydration for now. Chronicity is unclear. At this time is not symptomatic. Status: Acute (6) Person under investigation for COVID-19: COVID-19 test sent out last week. States that was told may receive results on Sunday, but did not receive any phone call. ER physician attempted to reach out to her PCP but PCP was not aware of COVID 19 results. Patient has been are not aware what lab the test was sent to. We will keep under isolation for now. Will need to investigate tomorrow or last resort on Sunday with regards to test results. 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
[2019-08-12] VITALS: PULSE 69; RESP 14; TEMP 36.7; O2SAT 96
[2019-08-12 02:00] VITALS: BP 135/75; PULSE 70; RESP 16; O2SAT 96
[2019-08-12 04:00] VITALS: BP 135/75; PULSE 72; RESP 15; O2SAT 95
[2019-08-12 05:51] LABS: Basophils % 0.5 %; Eosinophils % 0.1 %; Hematocrit 35.8 % (37.0-47.0); Hemoglobin 12.2 g/dL (11.5-15.3); Lymphocytes # 5.9 10^3/uL (0.8-4.8); Lymphocytes % 80.3 %; Mean Corpuscular HGB Conc 34.1 g/dL (30.0-36.0); Mean Corpuscular Hemoglobin 30.4 pg (28.0-34.0); Mean Corpuscular Volume 89.3 fL (81-99); Mean Platelet Volume 12.9 fL (7.4-10.4); Monocytes # 0.4 10^3/uL (0.2-0.9); Nucleated Red Blood Cells % 0 %; Platelet Count 69 10^3/cmm (130-400); Red Blood Count 4.01 10^6/uL (4.1-5.3); Red Cell Distribution Width 13.6 % (12.1-15.1); White Blood Count 7.3 10^3/uL (4.0-10.0)
[2019-08-12 06:32] LABS: Neutrophils # 0.9 10^3/uL (1.8-7.7)
[2019-08-12 06:33] LABS: Slide Review Slide Review Perform
[2019-08-12 06:45] LABS: INR 0.92 (0.8-1.2)
[2019-08-12 06:50] LABS: Alanine Aminotransferase 50 U/L (0-33); Albumin Level 3.4 g/dL (3.5-5.2); Alkaline Phosphatase 197 IU/L (35-105); Anion Gap 12.5 (5-19); Aspartate Amino Transferase 74 U/L (0-32); Blood Urea Nitrogen 12 mg/dL (8-23); C Reactive Protein 7.9 mg/L (0.0-4.9); Calcium 9.1 mg/dL (8.5-10.5); Carbon Dioxide 24 mmol/L (22-29); Chloride 104 mmol/L (98-107); Globulin 1.9 g/dL (1.3-4.6); Glomerular Filtration Rate 71.5 mL/min (90-130); Glucose 99 mg/dL (65-115); Magnesium 1.9 mg/dL (1.7-2.3); Osmolality Calculated 280 mOsm/kg (285-295); Phosphorus 3.2 mg/dL (2.5-4.5); Potassium 3.5 mmol/L (3.5-5.1); Sodium 137 mmol/L (136-145); Total Bilirubin 0.3 mg/dL (0.15-1.2); Total Protein 5.3 g/dL (6.6-8.7)
[2019-08-12 06:56] LABS: Procalcitonin 0.37 ng/mL (0-0.5)
[2019-08-12 07:07] LABS: Creatine Phosphokinase 13 U/L (26-192)
[2019-08-12 07:58] LABS: Erythrocyte Sedimentation Rate 11 mm/hr (0-15)
[2019-08-12 07:59] VITALS: BP 157/72; PULSE 68; RESP 19; TEMP 36.5; O2SAT 99
[2019-08-12 08:38] VITALS: BP 157/72; PULSE 68; RESP 19; TEMP 36.5; O2SAT 99
--- NOTE | 2019-08-12 08:49 | PC.SOCIAL ---
IM follow up given to patient by phone since she is currently under COVID precautions. She was tested at PCP office and result still pending. Pt verbalized understanding of IM but indicates she is ready to go home.
[2019-08-12] MEDS: doxycycline 100 mg Tablet PO (08:58)
--- NOTE | 2019-08-12 09:14 | PC.NURSE ---
PT UP AD LAURA IN ROOM. PLEASANT, DENIES ANY PAIN. DISCHARGE HOME TODAY NO COVID RESULTS AVAILABLE FROM DR LIPSCOMB'S OFFICE PT ENCOURAGED TO CONTINUE TO WEAR MASK & ISOLATE UNTIL RESULTS ARE BACK.
--- NOTE | 2019-08-12 10:00 | PC.NURSE ---
COVID TEST NEGATIVE. DISCHARGE INSTRUCTIONS REVIEWED WITH PT. RILEY DC'D WITH CATHETER INTACT. WHEELED TO PRIVATE VEHICLE, WISHED WELL.
--- NOTE | 2019-08-12 12:17 | P.DS_ITS ---
Discharge Providers Date of Admission: 08/09/19 15:54 Date of Discharge: August 12, 2019 Attending Provider at Admission: Hardik Gaviria Attending Provider at Discharge: Fausto Yun MD Primary Care Provider: Andrew Alfaro DO Diagnoses at Discharge Discharge Diagnosis (1) Fever: Status: Acute Qualifiers: Fever type: unspecified Qualified Code(s): R50.9 - Fever, unspecified (2) Leukopenia: Status: Acute Qualifiers: Leukopenia type: unspecified Qualified Code(s): D72.819 - Decreased white blood cell count, unspecified (3) Thrombocytopenia: Status: Acute (4) Transaminitis: Status: Acute (5) Hyponatremia: Status: Acute (6) Person under investigation for COVID-19: Status: Acute Reason for Visit Reason for Visit: FLANK PAIN Hospital Course Discharge Summary: This is a 69-year-old female with out any significant medical history who presents to [facility] due to complaints of myalgias, generalized weakness, malaise, fevers, diarrhea and recent tick bites. Patient was admitted to [facility] due to tickborne fever leukopenia, thrombocytopenia, anemia, transaminitis. Due to possible concerns for TTP, due to elevated LDH and low haptoglobin patient was monitored in the ICU. Patient states that she lives out in the [facility], is not uncommon for her to remove several ticks daily, denies any current tick bites, examination did not really reveal any ticks. Patient clinically improved, remained afebrile, leukopenia resolved, anemia resolved, thrombocytopenia improved and was 69,000 on discharge. Transaminitis remains stable AST 74, ALT 50. Her inflammatory markers were within normal limits. Patient peripheral smear showed moderate to severe leukopenia, severe thrombocytopenia. Thus likely patient had tickborne fever with some component of tickborne paralysis. Patient significantly improved, remained afebrile, ambulating without any significant symptomatology, was discharged home on 10 remaining days of doxycycline with repeat blood work in a week. I will also have patient follow-up with Dr. Loera as outpatient, as there was some concerns for TTP or ITP or even EBV, and as her platelet count is 69,000 on discharge; tick panel is pending on discharge. L I believe that likely her platelet count will slowly resolve, but if in case it does not, she will have a follow-up with Dr. Loera. Of note her hepatitis panel was negative, HIV panel was negative, she did show mild splenomegaly on her CT abdomen. Patient's cultures remain unremarkable, stool studies within normal limits. Patient's chest x-ray did show a 1.6x 2.6 cm pulmonary nodule, over the right lung apex, patient is to follow-up with her primary care provider for a nonemergent CT. Physical Exam Const: COMMON NORMALS: no acute distress and patient oriented x3 HENMT: COMMON NORMALS: normocephalic HEAD & SCALP: normocephalic Neck/C-Spine: COMMON NORMALS: no JVD Resp: COMMON NORMALS: normal respiratory effort, No retractions, No use of accessory muscles and clear to auscultation bilaterally AUSCULTATION: clear to auscultation bilaterally Cardio: COMMON NORMALS: no JVD, regular rate, regular rhythm, S1 normal heart sound present and S2 normal heart sound present RATE: regular rate RHYTHM: regular rhythm HEART SOUNDS: S1 normal heart sound present and S2 normal heart sound present GI: COMMON NORMALS: Normal to inspection, nondistended, normoactive bowel sounds present, Soft to palpation, non-tender, No hepatosplenomegaly present, no masses and no bruits PALPATION: Yes Soft to palpation and Yes No hepatosplenomegaly present Extremity: COMMON NORMALS: capillary refill normal, no clubbing, cyanosis or edema, no calf tenderness and no pedal edema Neuro: COMMON NORMALS: patient oriented x3 Psych: COMMON NORMALS: mental status grossly normal Discharge Data Data Completed and Pending: Completed Studies During Hospitalization Category Date Time Status CT abdomen pelvis w con* [id number] Stat Cat Scan 08/09/19 12:[address] lumbar spine w o con* [id number] Stat Cat Scan 08/09/19 12:24 Completed XR chest 1V chet ble [id number] Stat Exams 08/09/19 13:42 Completed Pending at discharge Category Date Time Status Blood Culture Sta t Lab 08/09/19 12:50 Results C Reactive Protei n AM LABS Lab 08/13/19 04:00 Ordered C Reactive Protei n AM LABS Lab 08/14/19 04:00 Ordered Complete Blood Co unt w/Auto AM LABS Lab 08/13/19 04:00 Ordered Complete Blood Co unt w/Auto AM LABS Lab 08/13/19 04:00 Ordered Complete Blood Co unt w/Auto AM LABS Lab 08/14/19 04:00 Ordered Comprehensive Met abolic Panel AM LA BS Lab 08/13/19 04:00 Ordered Comprehensive Met abolic Panel AM LA BS Lab 08/14/19 04:00 Ordered Creatine Phosphok inase AM LABS Lab 08/13/19 04:00 Ordered Creatine Phosphok inase AM LABS Lab 08/14/19 04:00 Ordered Magnesium AM LABS Lab 08/13/19 04:00 Ordered Magnesium AM LABS Lab 08/14/19 04:00 Ordered Miscellaneous Maricruz t Routine Lab 08/09/19 03:12 Received Phosphorus AM LAB S Lab 08/13/19 04:00 Ordered Phosphorus AM LAB S Lab 08/14/19 04:00 Ordered Procalcitonin AM LABS Lab 08/13/19 04:00 Ordered Procalcitonin AM LABS Lab 08/14/19 04:00 Ordered Prothrombin Time INR AM LABS Lab 08/13/19 04:00 Ordered Prothrombin Time INR AM LABS Lab 08/14/19 04:00 Ordered Tick Panel Stat Lab 08/09/19 16:16 Received Labs from last 24 hours 08/12/19 08/12/19 08/12/19 05:00 05:00 05:00 WBC RBC Hgb Hct MCV MCH MCHC RDW Plt Count MPV Neut % (Auto) Lymph % (Auto) Leslie % (Auto) Eos % (Auto) Baso % (Auto) Neut # (Auto) Lymph # (Auto) Leslie # (Auto) Eos # (Auto) Baso # (Auto) Nucleated RBC % (a uto) Nucleated RBCs # ESR 11 PT 12.60 INR 0.92 Sodium Potassium Chloride Carbon Dioxide Anion Gap BUN Creatinine GFR Calculation Glucose Calculated Osmolal ity Calcium Phosphorus Magnesium Total Bilirubin AST ALT Alkaline Phosphata se Creatine Kinase 13 L C-Reactive Protein Total Protein Albumin Globulin Procalcitonin 0.37 08/12/19 08/12/19 05:00 05:00 WBC 7.3 RBC 4.01 L Hgb 12.2 Hct 35.8 L MCV 89.3 MCH 30.4 MCHC 34.1 RDW 13.6 Plt Count 69 L MPV 12.9 H Neut % (Auto) 13.0 Lymph % (Auto) 80.3 Leslie % (Auto) 6.0 Eos % (Auto) 0.1 Baso % (Auto) 0.5 Neut # (Auto) 0.9 L Lymph # (Auto) 5.9 H Leslie # (Auto) 0.4 Eos # (Auto) 0.0 Baso # (Auto) 0.0 Nucleated RBC % (a uto) 0 Nucleated RBCs # 0.0 ESR PT INR Sodium 137 Potassium 3.5 Chloride 104 Carbon Dioxide 24 Anion Gap 12.5 BUN 12 Creatinine 0.8 GFR Calculation 71.5 L Glucose 99 Calculated Osmolal ity 280 L Calcium 9.1 Phosphorus 3.2 Magnesium 1.9 Total Bilirubin 0.3 AST 74 H ALT 50 H Alkaline Phosphata se 197 H Creatine Kinase C-Reactive Protein 7.9 H Total Protein 5.3 L Albumin 3.4 L Globulin 1.9 Procalcitonin Vitals: Last Vital Signs Temp 97.7 F 08/12/19 08:38 Pulse 68 08/12/19 08:38 Resp 19 H 08/12/19 08:38 BP 157/72 08/12/19 08:38 Pulse Ox 99 08/12/19 08:38 Discharge Plan Discharge Patient Disposition: Home, Self-Care Condition: Stable Prescriptions: New doxycycline monohydrate 100 mg Tablet 100 mg PO BID 10 Days Qty: 20 RF: 0 Discontinued cephalexin 500 mg capsule 500 mg PO TID RF: 0 Discharge Orders: Discharge Order (Routine); Ordered 08/12/19 Ordered By: Fausto Yun Other Ambulatory Orders: Complete Blood Count w/Auto (Routine) Timeframe: 1 Week Location: Determined by Patient Ordered By: Fausto Yun Comprehensive Metabolic Panel (Routine) Timeframe: 1 Week Facility: [facility] - Location: Lab - Main Lab Ordered By: Fausto Yun Referrals: Mak Loera MD [Hospitalist] - 1 week (DR VILLATORO OFFICE WILL CALL YOU WITH AN APPT.) Andrew Alfaro DO [Primary Care Provider] - 08/19/19 12:00 pm Discharge Diet: Cardiac Discharge Activity: Resume usual activity Patient Instructions: Doxycycline (By mouth), Tick Bite (DC), Tick Bite (GEN), Heart Healthy Diet (DC) Activity Restrictions/Additional Instructions: -Please self isolate at home until COVID-19 testing comes back negative -If you have fevers, chills, cough, or worsening shortness of breath please seek medical attention or call into COVID-19 hotline -If you have worsening muscle aches or pains, bleeding, lightheadedness or dizziness please come to the emergency room -Please follow-up with Dr. Loera in 1 week -Please repeat blood work in 1 week -Lung nodule seen on chest x-ray, will require a nonurgent CT of her chest as outpatient Discharge Date/Time: 08/12/19 10:30 Discharge Attestations Time Spent in Discharge Care*: less than 30 min Quality Metrics Clinical Quality Measures During this hospital stay, did patient experience: None Coding Level of Care Code Acute Buckle And Button Maker for Chg 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 Diagnoses Fever R50.9 Fever type: unspecified Leukopenia D72.819 Leukopenia type: unspecified Thrombocytopenia D69.6 Transaminitis R74.0 Hyponatremia E87.1 Person under investigation for COVID-19 Z20.828
[2019-08-12 13:10] LABS: Lyme AB Screen <0.90 index
[2019-08-13 17:30] LABS: E. Chaffeensis AB IGG <1:64; E. Chaffeensis AB IGM <1:20
[2019-08-14 19:34] LABS: RMSF IGG NOT DETECTED; RMSF IGM NOT DETECTED
== END 2019-08-12 10:30 | disposition home or self-care (01) | DRG 866 ==
LOC: ER 15:56 → ICU 23:31
PROVIDERS: Emergency Medicine; Admitting Provider Internal Medicine; PCP Electrodiagnostic Medicine; Visit Provider Family Medicine
DX: A93.8 Other specified arthropod-borne viral fevers (principal); E87.1 Hypo-osmolality and hyponatremia; D69.6 Thrombocytopenia, unspecified; Z20.828 Contact with and (suspected) exposure to other viral communicable diseases; R91.1 Solitary pulmonary nodule; Z87.891 Personal history of nicotine dependence; R19.7 Diarrhea, unspecified
CPT/HCPCS: 12345; 36415; 71045; 72131; 74177; 80053; 80074; 80500; 81001; 82550; 83010; 83605; 83615; 83630; 83690; 83735; 84100; 84145; 85025; 85610; 85651; 85730; 86140; 86618; 86666; 86757; 86880; 87040; 87506; 87798; 87806; 96375; 99282; J0131; J2270; J2405; J2543; J3490; J7030; J7050; Q9967

== ENCOUNTER 2019-08-25 10:21 | Outpatient (CLI) | payer MEDICARE, OTHER, SELFPAY ==
--- NOTE | 2019-08-25 18:39 | ONC FU_ITS ---
Dr. Loera Patient Follow-Up Note Patient: Yenifer Price Unit #: [id number]: 1950 Dicatated By: Mak Loera M.D.Date of Visit:Aug 25, 2019 Onc Med Follow-up/Prog Note Chief Complaint: Leukopenia and thrombocytopenia. History of Present Illness: This is a 69 year-old woman with moderately severe leukopenia and thrombocytopenia. On 08/09/2019 she was admitted to the hospital with a febrile illness. It had been going on for at least several days. Other symptoms included back pain, generalized muscle pain, and severe muscle cramping. She had started Keflex as an outpatient for suspected urinary tract infection. Her back pain improved on the Keflex, but her other symptoms had worsened. Her initial CBC showed normal hemoglobin at 13.3 g with white blood cell count 2300 and platelet count 31,000. The absolute neutrophil count was 900. Her sodium was low at 121 mmol/L, but with borderline renal function, BUN 16 and creatinine 1.0 mg/dL. Liver enzymes were mildly elevated. The LDH was significantly elevated at 671 U/L. Chest x-ray showed a possible pulmonary nodule over the medial aspect of the right lung apex measuring 1.[address] abdomen/pelvis was unremarkable except for mild splenomegaly. She was treated empirically for tick fever with doxycycline. Her blood cultures were negative and her initial tick fever panel came back negative. Her acute hepatitis profile was also unrevealing. At discharge she still had mild neutropenia and thrombocytopenia, but her blood counts did appear to be recovering. She is seen for follow-up of the low blood counts. She says she is feeling so much better than she had been, though she still tires easily. Her ECOG score is 1. Her appetite is coming back. Her weight is still down a few pounds. She has had no further fever. She has not had any night sweating. She thinks she may have had a hot flash last night. She has no shortness of breath, cough, or chest pain. She had some nausea with the doxycycline. She has no other GI or complaints. Her back pain has been better since she first started the Keflex. She still has some pain in her knees, but that is chronic. She has had just slight headache. She has no focal neurologic symptoms. Medications: Acetaminophen Extra Strength 1 Tablet (of 500 mg) Oral PRN Allergies: Codeine Sulfate Review of Systems: Constitutional - She is feeling much better generally, but she still tires easily. Her appetite is coming back. Her weight is down a few pounds. She is currently not having fever or night sweats. She thinks she may have had a hot flash last night. ECOG score is 1, Eyes - No change in vision, ENMT - No hearing loss or tinnitus. No sinus congestion/drainage. No mouth sores. No sore throat or difficulty swallowing, Hematologic/Lymphatic - No abnormal bruising or bleeding, Respiratory - No shortness of breath. No cough. No pleuritic pain or hemoptysis, Cardiovascular - No angina pain. No palpitations, Gastrointestinal - She had some nausea on the antibiotic. No heartburn or acid reflux. No diarrhea or constipation. No blood in the stool or black stools, Genitourinary (F) - No dysuria or hematuria. No urinary frequency. No urgency or incontinence, Musculoskeletal - She has had significant improvement in her back pain since initially starting on antibiotic. She has pain in her knees, which is chronic, Integumentary - No skin rash, Neurologic - She had just a slight headache. No dizziness. No numbness or tingling. No other focal neurologic symptoms, Psychiatric - No anxiety or depression. No insomnia. Vital Signs: Performed on Aug 25, 2019 11:34 Height - 52.50 in Weight - 136.4 lbs (HIGH) BSA - 1.44 sq.m BMI - 34.79 (HIGH) Temperature - 97.9 F (LOW) Pulse - 70 /min Respiration - 18 /min BP - 164/80 mm(hg) (HIGH) O2 Sat - 98 % Pain - 0 Physical Examination: Constitutional - She does not appear acutely ill, Eyes - Sclerae nonicteric. Conjunctivae clear, ENMT - No lesions noted in the oral cavity, Neck - No mass or thyromegaly, Hematologic/Lymphatic - No cervical, clavicular, or axillary adenopathy, Respiratory - Lungs are clear with good air movement bilaterally, Cardiovascular - Heart rhythm is regular. There is a II/ systolic murmur. There is no gallop or rub noted, Abdomen - Soft and non-tender. Liver and spleen are not enlarged. There is no abdominal mass or ascites noted and there is no inguinal adenopathy, Back/Spine - No spine or CVA tenderness noted, Extremities - No edema. Pedal pulses are palpable bilaterally, Integumentary - No rashes. No suspicious skin lesions noted, Neurologic - No focal neurologic deficits noted. Lab/Imaging: Her repeat laboratory studies with Dr. Alfaro on 08/20/2019 included CBC showing hemoglobin 12.8 g, white blood cell count 7100, and platelet count 324,000. The differential included 54% neutrophils, 35% lymphocytes, and 8% monocytes. Comprehensive metabolic profile showed normal renal function with BUN 10 and creatinine 0.87 mg/dL. Sodium was normal at 137 mmol/L. The bilirubin and liver enzymes were normal. Impression: 1. Patient with moderately severe neutropenia and thrombocytopenia in association with an acute febrile illness. A specific cause was not determined, but since tickborne zoonosis was suspected. 2. She has had clinical improvement on empiric antibiotic therapy with doxycycline, and her blood counts have now recovered to normal. 3. Her chest x-ray did show possible right apical lung mass. Plan: The laboratory findings were reviewed with the patient. She has had complete recovery of her blood counts, and she does not require any further hematologic evaluation. Any additional laboratory testing will be up to the discretion of Dr. Alfaro. At a minimum she should have a repeat chest x-ray for follow-up of the pulmonary nodule, and a chest CT has indicated. I will plan to see her again only as needed. Signed By: Mak Loera M.D. <<Signature on File>>
== END 2019-08-25 10:22 | disposition home or self-care (01) ==
LOC: ONCMED 10:30
PROVIDERS: PCP Electrodiagnostic Medicine; Referring Provider Family Medicine; Visit Provider Internal Medicine Medical Oncology
DX: D72.819 Decreased white blood cell count, unspecified (principal); D69.6 Thrombocytopenia, unspecified; R91.1 Solitary pulmonary nodule
CPT/HCPCS: 99203

== ENCOUNTER 2019-09-08 12:48 | Outpatient (CLI) | payer MEDICARE, OTHER, SELFPAY ==
--- NOTE | 2019-09-08 12:54 | CT_ITS ---
WS: [id number] CT CHEST TECHNIQUE: Contrast enhanced CT of the chest with coronal and sagittal reformatted images. CLINICAL INFORMATION: LUNG MASS,THROMBOCYTOPENIA, LEUKOCYTOPENIA, TICK FEVER COMPARISON: Radiograph August 09, 2019 DLP: 569.[address] scans at [facility] use at least one of these dose optimization techniques: automat ed exposure control; mA and/or kV adjustment per patient size (includes targeted exams where dose is matched to clinical indication); or iterative reconstruction. FINDINGS: Moderate chronic emphysematous changes. No acute pulmonary infiltrates. Subsegmental atelectasis righ t lower lobe. No consolidation or pleural fluid. No evidence of right upper lobe or mediastinal mass. Aortic calcification. Proximal main pulmonary arteries appear normal. Normal thyroid. No mediastinal or hilar lymphadenopathy. No axillary lymphadenopathy. Adrenal glands are normal. Postoperative changes lower cervical spine. CT/CT chest w con* [id number] IMPRESSION: 1. Moderate chronic emphysematous changes. 2. No acute pulmonary infiltrates. 3. No mediastinal or hilar lymphadenopathy. No mediastinal mass. 4. No other significant findings.
[2019-09-08] MEDS: iohexol 300 mg/mL 100 mL Btl IV (13:31)
== END 2019-09-08 12:49 | disposition home or self-care (01) ==
LOC: RADWPI 12:52
PROVIDERS: Family Provider Electrodiagnostic Medicine; PCP Electrodiagnostic Medicine; Visit Provider Electrodiagnostic Medicine
DX: R91.8 Other nonspecific abnormal finding of lung field (principal); D69.6 Thrombocytopenia, unspecified; D72.819 Decreased white blood cell count, unspecified; A93.8 Other specified arthropod-borne viral fevers
CPT/HCPCS: 71260; Q9967

== ENCOUNTER 2019-12-18 13:58 | Outpatient (CLI) | payer MEDICARE, OTHER, SELFPAY ==
--- NOTE | 2019-12-18 14:06 | MM_ITS ---
WS: [id number] BILATERAL DIGITAL SCREENING MAMMOGRAM WITH CAD CLINICAL INFORMATION: SCREENING HISTORY: Screening mammogram. No current complaints. COMPARISON: 2016 TECHNIQUE: Bilateral CC and MLO. FINDINGS: The breast are composed of extremely dense tissue, which can limit the detection of small underlying mass lesions. Asymmetric lobular density measuring 7 mm outer left breast posterior depth. This is mo re prominent compared to previous. Recommend further evaluation with left diagnostic mammography and ultrasound. Lucent centered calcification right breast. Right breast is unremarkable. MM/[place] [id number] IMPRESSION: BI-RADS: 0-Incomplete: Need additional imaging evaluation FOLLOW UP: Need Additional Imaging RECOMMEND LEFT BREAST DIAGNOSTIC MAMMOGRAPHY AND ULTRASOUND.
== END 2019-12-18 13:59 | disposition home or self-care (01) ==
LOC: RADSHAW 14:04
PROVIDERS: PCP Electrodiagnostic Medicine; Visit Provider Electrodiagnostic Medicine
DX: Z12.31 Encounter for screening mammogram for malignant neoplasm of breast (principal); N64.89 Other specified disorders of breast
CPT/HCPCS: 77067

== ENCOUNTER 2020-01-13 12:28 | Outpatient (CLI) | payer MEDICARE, OTHER, SELFPAY ==
--- NOTE | 2020-01-13 12:34 | XRR_ITS ---
PROCEDURE INFORMATION: Exam: XR Lumbosacral Spine, 2 or 3 Views Exam date and time: 01/13/2020 12:35 PM Age: 69 years old Clinical indication: Low back pain; Prior surgery; Surgery date: 6+ months; Surgery type: Arthrodesis status; Patient HX: C/O lumbar pain. 1 year post op TECHNIQUE: Imaging protocol: XR of the lumbosacral spine, 2 or 3 views. COMPARISON: CT lumbar spine wo con* [id number] 08/09/2019 1:48 PM FINDINGS: Bones/joints: There is generalized osteopenia seen. No acute fracture. Normal alignment. Metallic hardware is seen in the L4-L5 level with metallic transpedicular screws and rods and metallic intravertebral disc spacer present. These findings were present on prior examination. Soft tissues: Unremarkable. XR/XR lumbar spine 2-3V* [id number] IMPRESSION: 1. No acute findings. 2. Surgical hardware in place as described
== END 2020-01-13 12:29 | disposition home or self-care (01) ==
LOC: RADWPI 12:32
PROVIDERS: PCP Electrodiagnostic Medicine; Visit Provider Nurse Practitioner Family
DX: Z98.1 Arthrodesis status (principal)
CPT/HCPCS: 72100

== ENCOUNTER 2020-01-14 14:12 | Outpatient (CLI) | payer MEDICARE, OTHER, SELFPAY ==
--- NOTE | 2020-01-14 14:30 | MM_ITS ---
WS: [id number] LEFT DIGITAL MAMMOGRAPHY WITH CAD CLINICAL INFORMATION: abnormal mammo 7mm lobular density LT breast COMPARISON: December 18, 2019 TECHNIQUE: 4 views of the left breast were obtained. FINDINGS: The left breast is composed of extremely dense tissue, which can limit the detection of small underly ing mass lesions. Stable 7 mm asymmetric density in the deep posterior left breast. This is unchanged. Ultrasound is pe nding. ULTRASOUND BREAST LEFT TECHNIQUE: Ultrasound left breast focused area of concern. CLINICAL INFORMATION: abnormal mammo 7mm lobular density LT breast COMPARISON: None. FINDINGS: Ultrasound left breast at the 2:00 position 3 cm from the nipple. In the area of concern, there is a 1.0 x 0.7 0.5 cm slightly irregular hypoechoic lesion. This has a solid appearance. This is nonspecif ic and recommend further evaluation with ultrasound-guided biopsy. MM/[place] [id number] IMPRESSION: BI-RADS: 4-Suspicious Finding-Biopsy Should Be Considered FOLLOW UP: US Guided Biopsy Recommended
--- NOTE | 2020-01-14 15:00 | US_ITS ---
WS: [id number] LEFT DIGITAL MAMMOGRAPHY WITH CAD CLINICAL INFORMATION: abnormal mammo 7mm lobular density LT breast COMPARISON: December 18, 2019 TECHNIQUE: 4 views of the left breast were obtained. FINDINGS: The left breast is composed of extremely dense tissue, which can limit the detection of small underly ing mass lesions. Stable 7 mm asymmetric density in the deep posterior left breast. This is unchanged. Ultrasound is pe nding. ULTRASOUND BREAST LEFT TECHNIQUE: Ultrasound left breast focused area of concern. CLINICAL INFORMATION: abnormal mammo 7mm lobular density LT breast COMPARISON: None. FINDINGS: Ultrasound left breast at the 2:00 position 3 cm from the nipple. In the area of concern, there is a 1.0 x 0.7 0.5 cm slightly irregular hypoechoic lesion. This has a solid appearance. This is nonspecif ic and recommend further evaluation with ultrasound-guided biopsy. US/US breast LT limited* [id number] IMPRESSION: BI-RADS: 4-Suspicious Finding-Biopsy Should Be Considered FOLLOW UP: US Guided Biopsy Recommended
--- NOTE | 2020-01-23 09:03 | PC.NURSE ---
Spoke to patient again today. As of 01/19/20 pt wanted to get a second opinion from Dr. Alfaro. Today she states that she has spoke with Dr. Alfaro. He told the pt he thinks it is probably benign. Pt states she has had a history of having these breast nodules and decided after consulting with Dr. Alfaro that she does not want to go ahead with the biopsy. I told her if she changes her mind or needs anything from us to give us a call. Pt had no further needs/questions at this time. Seferino DENG
== END 2020-01-14 14:13 | disposition home or self-care (01) ==
LOC: RADSHAW 14:15
PROVIDERS: PCP Electrodiagnostic Medicine; Visit Provider Electrodiagnostic Medicine
DX: R92.8 Other abnormal and inconclusive findings on diagnostic imaging of breast (principal); N63.21 Unspecified lump in the left breast, upper outer quadrant
CPT/HCPCS: 76642; 77065

== ENCOUNTER 2021-11-09 09:55 | Outpatient (CLI) | payer MEDICARE, OTHER, SELFPAY ==
[2021-11-09 11:03] VITALS: BMI 25.6
--- NOTE | 2021-11-09 11:05 | NMCV_ITS ---
NM tori perf SPECT r/s* [id number] Yenifer Price Age: 71 Gender: F : 1950 Exam Date: 11/09/2021 11:15 Ordering Phys: Andrew Alfaro DO Technologist: ESTRELLA Payton Exam Location: [facility] Indications: CHEST PAIN STRESS TEST [facility] IMAGE PROTOCOL Rest/Stress 1 Lexiscan Day Radiopharmaceutical Dose (mCi) Administration Site Administered by Rest: Tc-99m 10.9 IV ESTRELLA Gaitan Sestamibi Stress:Tc-99m 32.7 IV ESTRELLA Gatian Sestamibi Rest: 09-Nov-2021 60 Discovery 630 Stress: 09-Nov-2021 30 Discovery 630 0.4mg Lexiscan. Images obtained in supine and prone position. SPECT RESULTS Technical Quality: Excellent Raw Data Analysis: Normal Image Corrections: No attenuation or motion correction applied Summed Stress Score: 0 Summed Rest Score: 0 Summed Difference Score: 0 PERFUSION FINDINGS SPECT images demonstrate homogeneous tracer distribution throughout the myocardium. FUNCTIONAL RESULTS (calculated via Gated SPECT) Stress Image LV EF (%): 68 Stress EDV (mL):78 TID: 0.88 Stress ESV (mL):25 FUNCTIONAL FINDINGS: There is normal left ventricular systolic function. IMPRESSIONS 1. Normal myocardial perfusion imaging with no evidence of ischemia. 2. LV systolic function is normal Fredi Stallings MD (Electronically Signed) Final Date: 09 November 2021 14:01 S
--- NOTE | 2021-11-09 11:05 | ECG_ITS ---
[facility] Test Date: 2021-11-09 Pat Name: Yenifer Price Department: Room: Gender: Female Mysql Dba: : 1950 Requested By: Andrew Leahy Order Number: [id number] Paulina MD: Fredi Stallings M.D. Interpretive Statements NAME OF STUDY: LEXISCAN SESTAMIBI STRESS TEST INDICATION: [Chest Pain, ] Procedure: At the baseline, the blood pressure was 163/86 mmHg with a heart rate of 70 bpm. The electrocardiogram showed normal sinus rhythm, normal axis with normal ST and T's. The Lexiscan was infused over a period of 20 seconds. A total of 0.4 mg of Lexiscan was infused. The stress phase was continued for a total of 5 minutes. Heart rate was at the end of stress phase was 92 bpm and a blood pressure of 186/84 mmHg. The EKG at the peak infusion revealed normal sinus rhythm with no significant ST-T wave changes. Sestamibi was injected 20 seconds after the Lexiscan infusion. Blood pressure at the end of recovery phase was 186/79 mmHg with a heart rate of 84 bpm. Conclusion: 1. Normal EKG response to Lexiscan infusion 2. No Lexiscan induced chest pain or cardiac arrhythmia. 3. Normal blood pressure and heart rate response. 4. Sestamibi/sestamibi perfusion scan pending; see separate report. Electronically Signed On 11-16-2021 10:13:46 CDT by Fredi Stallings M.D. [email or web address]
[2021-11-09 11:53] VITALS: BP 186/79; PULSE 84
== END 2021-11-09 09:56 | disposition home or self-care (01) ==
LOC: CDL 09:58
PROVIDERS: PCP Electrodiagnostic Medicine; Visit Provider Electrodiagnostic Medicine
DX: R07.9 Chest pain, unspecified (principal)
CPT/HCPCS: 78452; 93017; A9500

== ENCOUNTER 2022-01-13 12:25 | Emergency (ER) | payer MEDICARE, OTHER, SELFPAY ==
[2022-01-13 12:53] VITALS: BP 209/81; PULSE 76; RESP 14; TEMP 36.4; O2SAT 98; BMI 25.6
--- NOTE | 2022-01-13 13:57 | XR_ITS ---
WS: [id number] Portable AP upright chest, 01/13/2022 Clinical Data: dyspnea/cough Comparison: Portable chest, 08/09/2019 Findings: No nodules, masses or effusions are seen. The heart is normal. The pulmonary vascularity is not increased. No pneumonia or pneumothorax is seen. The aortic arch and descending thoracic aorta s how mild calcification and tortuosity. The patient has had a lumbar fusion. Monitor leads are on the chest wall. The patient's clothing obscures minimal detail over the chest. XR/XR chest 1V portable [id number] Impression: Atherosclerosis.
--- NOTE | 2022-01-13 13:57 | ECG_ITS ---
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 Measurements Intervals [place] Rate: 69 P: 73 UT: 144 QRS: 77 QRSD: 82 T: 61 QT: 397 QTc: 425 Interpretive Statements SINUS RHYTHM POSSIBLE LEFT ATRIAL ENLARGEMENT [-0.1mV P-WAVE IN V1/V2] POSSIBLE RIGHT VENTRICULAR CONDUCTION DELAY [RSR (QR) IN V1/V2] SEPTAL MYOCARDIAL INFARCTION , OF INDETERMINATE AGE [40+ ms Q WAVE IN V1/V2] Compared to ECG 05/08/2015 10:03:56 Myocardial infarct finding now present Electronically Signed On 01-14-2022 16:38:55 MANAGER ELIGIBILITY by Jason Cunningham M.D. [id number]
--- NOTE | 2022-01-13 14:07 | W.ED.GENADLT ---
HPI - General Adult General: Chief complaint: General Medical Stated complaint: abnormal BP Time Seen by Provider: 01/13/22 13:57 Source: patient Mode of arrival: ambulatory History of Present Illness: 71-year-old female presents emergency room complaining of elevated blood pressure. Blood pressures in the 200s systolic range of referred to the emergency room by PCP. Denies chest pain denies difficulty with speech balance swallowing no localizing weaknesses. Onset (ago): hour(s) Severity: mild Relieving factors: none Exacerbating factors: none Associated symptoms: Deny chest pain, confusion, cough, diaphoresis, decreased appetite, dyspnea, fevers/chills, headache(s), malaise, nausea, rash, palpitations, seizures, short of breath, syncope, vomiting or weakness Treatments prior to arrival: other (Lisinopril) Review of Systems Const: Denies: fever(s), chills, fatigue, malaise or diaphoresis ENMT: Denies: throat pain, ear or mastoid pain, nasal discharge or nasal congestion Card: Denies: chest pain, palpitations or syncope Resp: Denies: dyspnea GI: Denies: abdominal pain, nausea or vomiting : Denies: flank pain, difficulty voiding, dysuria, urinary frequency or urinary urgency Skin/Breast: Denies: rash Neuro: Denies: headache(s) or confusion PFSH ED PFSH: Medical History No pertinent past medical history Surgical History History of back surgery Family History Brother Lung cancer Other Diabetes Social History Smoking and tobacco status: former smoker Quit status (tobacco): has quit using tobacco Former quit date comment: October 2019 Alcohol intake: never Lives independently: Yes Household members: spouse Marital status: Current occupational status: retired Physical Exam Const: COMMON NORMALS: no acute distress GENERAL APPEARANCE: cooperative and comfortable ORIENTATION/CONSCIOUSNESS: Yes awake, Yes oriented to person, Yes oriented to place and Yes oriented to time HENMT: COMMON NORMALS: normocephalic, atraumatic and hearing grossly normal bilaterally HEAD & SCALP: normocephalic and atraumatic Resp: COMMON NORMALS: normal respiratory effort, No retractions, No use of accessory muscles and clear to auscultation bilaterally AUSCULTATION: clear to auscultation bilaterally Cardio: COMMON NORMALS: regular rate, regular rhythm and No murmurs present (Cardio) RATE: regular rate RHYTHM: regular rhythm GI: COMMON NORMALS: Soft to palpation and No hepatosplenomegaly present AUSCULTATION: Yes normoactive bowel sounds PALPATION: Yes Soft to palpation, No Tenderness to palpation present (GI), No Guarding due to palpation present (GI) and Yes No hepatosplenomegaly present Extremity: COMMON NORMALS: normal to inspection, capillary refill normal, no clubbing, cyanosis or edema, no calf tenderness and no pedal edema Neuro: SENSORIUM/ORIENTATION: Yes oriented to person, Yes oriented to place and Yes oriented to time Skin: COMMON NORMALS: no rashes or lesions noted GENERAL SKIN EXAM: no rashes or lesions noted Course Vital Signs: Vital signs: Vital Signs Temperature 97.5 F L 01/13/22 12:53 Pulse Rate 77 01/13/22 17:09 Respiratory Rate 14 01/13/22 12:53 Blood Pressure 158/76 01/13/22 17:09 Pulse Oximetry 96 01/13/22 17:09 Oxygen Delivery Sd thod 01/13/22 14:32 [facility] - General Adult Medical Decision Making Labs imaging and EKG reviewed and chart. No acute EKG changes. Patient's blood pressure improved with medications given we will increase lisinopril to 20 twice daily add amlodipine 5 p.o. daily follow-up with primary care within the next 7 to 10 days to recheck blood pressure. Medical Records I reviewed the patient's medical records. Lab Data I reviewed the patient's lab results. 01/13/22 14:12 01/13/22 14:12 Radiology Impressions Chest X-Ray 01/13/22 13:57 Impression: Atherosclerosis. Laboratory Results WBC 7.0 10^3/uL (4.0-10.0) 01/13/22 14:12 RBC 4.34 10^6/uL (4.1-5.3) 01/13/22 14:12 Hgb 13.4 g/dL (11.5-15.3) 01/13/22 14:12 Hct 39.5 % (37.0-47.0) 01/13/22 14:12 MCV 91.0 fl (81-99) 01/13/22 14:12 MCH 30.9 pg (28.0-34.0) 01/13/22 14:12 MCHC 33.9 g/dL (30.0-36.0) 01/13/22 14:12 RDW 12.6 % (12.1-15.1) 01/13/22 14:12 Plt Count 192 10^3/cmm (130-400) 01/13/22 14:12 MPV 11.0 fL (7.4-10.4) H 01/13/22 14:12 Neut % (Auto) 73.0 % 01/13/22 14:12 Lymph % (Auto) 19.5 % 01/13/22 14:12 [place] % (Auto) 5.4 % 01/13/22 14:12 Eos % (Auto) 1.3 % 01/13/22 14:12 Baso % (Auto) 0.7 % 01/13/22 14:12 Neut # (Auto) 5.09 10^3/uL (1.8-7.7) 01/13/22 14:12 Lymph # (Auto) 1.4 10^3/uL (0.8-4.8) 01/13/22 14:12 [place] # (Auto) 0.4 10^3/uL (0.2-0.9) 01/13/22 14:12 Eos # (Auto) 0.1 10^3/uL (0.0-0.8) 01/13/22 14:12 Baso # (Auto) 0.1 10^3/uL (0.0-0.1) 01/13/22 14:12 Nucleated RBC % (auto) 0 % 01/13/22 14:12 Nucleated RBCs # 0.0 /100WBC 01/13/22 14:12 Sodium 137 mmol/L (136-145) 01/13/22 14:12 Potassium 4.8 mmol/L (3.5-5.1) 01/13/22 14:12 Chloride 101 mmol/L (98-107) 01/13/22 14:12 Carbon Dioxide 27 mmol/L (22-29) 01/13/22 14:12 Anion Gap 13.8 (5-19) 01/13/22 14:12 BUN 13 mg/dL (8-23) 01/13/22 14:12 Creatinine 1.1 mg/dL (0.5-0.9) H 01/13/22 14:12 GFR Calculation 49.2 mL/min (90-130) L 01/13/22 14:12 Glucose 88 mg/dL (65-115) 01/13/22 14:12 Calculated Osmolality 284 mOsm/kg (285-295) L 01/13/22 14:12 Calcium 10.4 mg/dL (8.5-10.5) 01/13/22 14:12 Total Bilirubin 0.3 mg/dL (0.15-1.2) 01/13/22 14:12 AST 17 U/L (0-32) 01/13/22 14:12 ALT 9 U/L (0-33) 01/13/22 14:12 Alkaline Phosphatase 84 U/L (35-105) 01/13/22 14:12 Total Protein 6.9 g/dL (6.6-8.7) 01/13/22 14:12 Albumin 4.5 g/dL (3.5-5.2) 01/13/22 14:12 Globulin 2.4 g/dL (1.3-4.6) 01/13/22 14:12 Discharge Plan Discharge Patient Disposition: Home Clinical Impression: Benign essential HTN Condition: Stable Prescriptions: New amlodipine 5 mg tablet 5 mg PO DAILY Qty: 30 0RF Changed lisinopril 20 mg tablet 20 mg PO BID Qty: 60 0RF No Action aspirin 325 mg Tablet 325 mg PO DAILY meloxicam 15 mg tablet 15 mg PO DAILY omeprazole 40 mg capsule,delayed release(DR/EC) 40 mg PO DAILY Fish Oil 300-1,000 mg Capsule 1 cap PO DAILY Discharge Orders: Discharge ED (Routine); Ordered 01/13/22 Ordered By: Oleg Hopper Referrals: Andrew Alfaro DO [Primary Care Provider] - Discharge Diet: Usual diet Discharge Activity: Increase activity as tolerated Patient Instructions: Opioid Safety, Pain Management Activity Restrictions/Additional Instructions: You were seen today for elevated blood pressure. Your laboratory studies were normal EKG did not show any acute changes. Would recommend you increase your lisinopril to 1 tablet twice a day and add amlodipine 5 mg once daily. You should follow-up with your primary care doctor within the next 7 to 10 days to reassess your blood pressure. Coding Level of Care Code ED Roofing Apprentice for Mono Rand
[2022-01-13 14:19] LABS: Basophils # 0.1 10^3/uL (0.0-0.1); Basophils % 0.7 %; Eosinophils # 0.1 10^3/uL (0.0-0.8); Eosinophils % 1.3 %; Hematocrit 39.5 % (37.0-47.0); Hemoglobin 13.4 g/dL (11.5-15.3); Lymphocytes # 1.4 10^3/uL (0.8-4.8); Lymphocytes % 19.5 %; Mean Corpuscular HGB Conc 33.9 g/dL (30.0-36.0); Mean Corpuscular Hemoglobin 30.9 pg (28.0-34.0); Monocytes # 0.4 10^3/uL (0.2-0.9); Monocytes % 5.4 %; Neutrophils # 5.09 10^3/uL (1.8-7.7); Nucleated Red Blood Cells % 0 %; Platelet Count 192 10^3/cmm (130-400); Red Blood Count 4.34 10^6/uL (4.1-5.3); Red Cell Distribution Width 12.6 % (12.1-15.1)
[2022-01-13 14:32] VITALS: BP 210/73; PULSE 84; O2SAT 98
[2022-01-13 14:34] LABS: Alanine Aminotransferase 9 U/L (0-33); Albumin Level 4.5 g/dL (3.5-5.2); Alkaline Phosphatase 84 U/L (35-105); Anion Gap 13.8 (5-19); Aspartate Amino Transferase 17 U/L (0-32); Blood Urea Nitrogen 13 mg/dL (8-23); Calcium 10.4 mg/dL (8.5-10.5); Carbon Dioxide 27 mmol/L (22-29); Chloride 101 mmol/L (98-107); Globulin 2.4 g/dL (1.3-4.6); Glomerular Filtration Rate 49.2 mL/min (90-130); Glucose 88 mg/dL (65-115); Osmolality Calculated 284 mOsm/kg (285-295); Potassium 4.8 mmol/L (3.5-5.1); Sodium 137 mmol/L (136-145); Total Bilirubin 0.3 mg/dL (0.15-1.2); Total Protein 6.9 g/dL (6.6-8.7)
[2022-01-13] MEDS: amlodipine 10 mg Tablet PO (15:19)
[2022-01-13] MEDS: metoprolol tartrate 25 mg Tablet PO (15:19)
[2022-01-13] MEDS: hyDRALAzine 20 mg/mL INJ 1 mL IVP (15:20)
[2022-01-13 16:03] VITALS: BP 165/75; PULSE 74; O2SAT 98
[2022-01-13 16:38] VITALS: BP 158/76
[2022-01-13 17:09] VITALS: BP 158/76; PULSE 77; O2SAT 96
== END 2022-01-13 17:00 | disposition home or self-care (01) ==
PROVIDERS: Emergency Provider Family Medicine; PCP Electrodiagnostic Medicine
DX: I10 Essential (primary) hypertension (principal); Z79.82 Long term (current) use of aspirin; Z87.891 Personal history of nicotine dependence
CPT/HCPCS: 71045; 80053; 85025; 93005; 96374; 99285; J0360

== ENCOUNTER 2022-05-02 14:50 | Outpatient (CLI) | payer MEDICARE, OTHER, SELFPAY ==
--- NOTE | 2022-05-02 | USCV_ITS ---
Dee Yenifer Age: 72 Gender: F : 1950 Exam Date: 05/02/2022 15:15 Ordering Phys: Andrew Alfaro (ER USE) Technologist: [place] [facility] [place]: high blood pressure RIGHT LEFT Brachial 164.00 mmHg Brachial mmHg Pressure (mmHg) Waveform Pressure (mmHg) Waveform 164.00 CONTROLS TECHNICIAN 170.00 1.00 Ankle/Brachial Index 1.00 FINDINGS Resting KACIE 1.0 bilaterally Post exercise KACIE of 0.93 on the right and 0.97 on the left CONCLUSIONS Features suggesting no significant arterial obstruction, based on the above findings Dr Kiya Gonzalez MD [facility] (Electronically Signed) Final Date: 03 May 2022 09:20 S
== END 2022-05-02 14:51 | disposition home or self-care (01) ==
PROVIDERS: PCP Electrodiagnostic Medicine; Visit Provider Electrodiagnostic Medicine
DX: I73.9 Peripheral vascular disease, unspecified (principal); I10 Essential (primary) hypertension
CPT/HCPCS: 93922

== ENCOUNTER 2022-05-03 15:18 | Emergency (ER) | payer MEDICARE, OTHER, SELFPAY ==
[2022-05-03 15:22] VITALS: BP 165/75; PULSE 87; RESP 19; TEMP 36.6; O2SAT 99; BMI 25.9
--- NOTE | 2022-05-03 15:39 | ECG_ITS ---
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 Measurements Intervals [place] Rate: 91 P: 75 NE: 134 QRS: 63 QRSD: 74 T: 68 QT: 336 QTc: 413 Interpretive Statements SINUS RHYTHM POSSIBLE LEFT ATRIAL ENLARGEMENT [-0.1mV P-WAVE IN V1/V2] SEPTAL MYOCARDIAL INFARCTION , OF INDETERMINATE AGE [40+ ms Q WAVE IN V1/V2] Compared to ECG 01/13/2022 14:04:17 No significant changes Electronically Signed On 05-03-2022 23:54:21 CDT by Kiya Gonzalez M.D. [id number]
[2022-05-03 17:42] LABS: Basophils # 0.1 10^3/uL (0.0-0.1); Basophils % 1.1 %; Eosinophils # 0.3 10^3/uL (0.0-0.8); Eosinophils % 3.5 %; Hematocrit 38.3 % (37.0-47.0); Hemoglobin 12.7 g/dL (11.5-15.3); Lymphocytes # 1.9 10^3/uL (0.8-4.8); Lymphocytes % 25.6 %; Mean Corpuscular HGB Conc 33.2 g/dL (30.0-36.0); Mean Corpuscular Hemoglobin 30.8 pg (28.0-34.0); Mean Corpuscular Volume 92.7 fl (81-99); Mean Platelet Volume 11.4 fL (7.4-10.4); Monocytes # 0.4 10^3/uL (0.2-0.9); Monocytes % 5.9 %; Neutrophils # 4.72 10^3/uL (1.8-7.7); Neutrophils % 63.6 %; Nucleated Red Blood Cells % 0 %; Platelet Count 201 10^3/cmm (130-400); Red Blood Count 4.13 10^6/uL (4.1-5.3); Red Cell Distribution Width 12.6 % (12.1-15.1); White Blood Count 7.4 10^3/uL (4.0-10.0)
[2022-05-03 18:07] LABS: Troponin(5th) Baseline 9 ng/L (0-10)
[2022-05-03 18:16] LABS: Alanine Aminotransferase 12 U/L (0-33); Albumin Level 4.6 g/dL (3.5-5.2); Alkaline Phosphatase 89 U/L (35-105); Anion Gap 15.5 (5-19); Aspartate Amino Transferase 18 U/L (0-32); Blood Urea Nitrogen 17 mg/dL (8-23); Calcium 9.4 mg/dL (8.5-10.5); Carbon Dioxide 26 mmol/L (22-29); Chloride 97 mmol/L (98-107); Globulin 2.1 g/dL (1.3-4.6); Glomerular Filtration Rate 49.1 mL/min (90-130); Glucose 86 mg/dL (65-115); NT Pro B Type Natriuretic Pept 107 pg/mL (0-125); Osmolality Calculated 277 mOsm/kg (285-295); Potassium 5.5 mmol/L (3.5-5.1); Sodium 133 mmol/L (136-145); Total Bilirubin 0.2 mg/dL (0.15-1.2); Total Protein 6.7 g/dL (6.6-8.7)
--- NOTE | 2022-05-03 18:55 | ECG_ITS ---
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 Measurements Intervals [place] Rate: 71 P: 74 IN: 143 QRS: 55 QRSD: 79 T: 54 QT: 388 QTc: 424 Interpretive Statements SINUS RHYTHM POSSIBLE LEFT ATRIAL ENLARGEMENT [-0.1mV P-WAVE IN V1/V2] POSSIBLE RIGHT VENTRICULAR CONDUCTION DELAY [RSR (QR) IN V1/V2] SEPTAL MYOCARDIAL INFARCTION , OF INDETERMINATE AGE [40+ ms Q WAVE IN V1/V2] Compared to ECG 05/03/2022 15:29:22 No significant changes Electronically Signed On 05-04-2022 18:47:40 CDT by Fredi Stallings M.D. [id number]
--- NOTE | 2022-05-03 19:48 | ED_ITS ---
HPI - Arrhythmia/Palpitations General: Chief Complaint: Arrhythmia/Palpitations Stated Complaint: high hr and bp Time Seen by Provider: 05/03/22 19:48 Source: patient and family Mode of arrival: ambulatory History of Present Illness: This patient made her way to the emergency department because she was concerned about symptoms she has been having off and on for the past couple of weeks. She states that she has had some intermittent unpredictable elevations in her blood pressure over the last several weeks. Has been despite some adjustments made in her blood pressure regimen by her primary care physician. She states that she seems to notice some odd symptoms of either palpitations and/or awareness when her blood pressure gets in the 1 70-1 80 range systolic. She gets an odd sensation in her left chest neck and face. She denies any weakness, numbness, loss of ability to speak etc. but it is just a sensation of a pounding in those areas when her pressure elevates. No jaw claudication change in vision etc. She states she is very physically active and when the weather is good she gets in anywhere from [id number] steps a day and from walking. She smoked as a young adult but has not smoked for many many years. She denies any cough fever etc. He occasionally drinks alcohol but rarely perhaps once every 6 months or so. She does drink quite a bit of caffeine and drinks approximately 2 pots of coffee daily. She admits to not drinking much in the way of water. She does get nocturnal cramps. She denies any dyspnea with exertion, orthopnea etc. States she generally sleeps well. No history of thyroid dysfunction, sustained arrhythmias etc. Associated symptoms: Reports muscle cramps; Deny anxiety, nausea, pre-syncope, syncope or vomiting Review of Systems Const: Denies: fever(s) or chills Eyes: Denies: change in vision or eye discomfort ENMT: Denies: throat pain, odynophagia, nasal discharge or nasal congestion Card: Reports: palpitations; Denies: chest pain, irregular heart rhythm, swelling of feet/ankles, lightheadedness, syncope, pre-syncope or dyspnea on exertion Resp: Denies: dyspnea, productive cough or non-productive cough GI: Denies: abdominal pain, nausea, vomiting or diarrhea : Denies: difficulty voiding or dysuria Musc: Reports: muscle cramps; Denies: neck pain, back pain, extremity pain or extremity swelling Skin/Breast: Denies: rash, pruritus or erythema Neuro: Denies: headache(s), numbness in extremities or weakness in extremities Psych: Denies: anxiety Endo: Denies: polyuria or polydipsia Wilian/Lymph: Denies: easy bruising or easy bleeding PFSH ED PFSH: Medical History No pertinent past medical history Surgical History History of back surgery Family History Brother Lung cancer Other Diabetes Social History Smoking and tobacco status: former smoker Quit status (tobacco): has quit using tobacco Former quit date comment: October 2019 Alcohol intake: never Lives independently: Yes Household members: spouse Marital status: Current occupational status: retired Physical Exam Narrative: EXAM NARRATIVE: She makes good eye contact, appears to be comfortable and cooperative. Speech is goal-directed and fluent. Const: COMMON NORMALS: no acute distress, average body habitus, patient oriented x3, healthy appearing and alert GENERAL APPEARANCE: cooperative and comfortable HENMT: COMMON NORMALS: normocephalic, atraumatic, moist oral mucous membranes and oropharynx normal HEAD & SCALP: normocephalic and atraumatic; no scalp tenderness and no Temporal artery tenderness present FACE & SINUS: normal facial exam and face symmetric Eye: COMMON NORMALS: Equal, round and reactive pupils present, EOMs intact bilaterally and conjunctivae normal CONJUNCTIVA: Yes conjunctivae normal PUPIL: Yes Equal, round and reactive pupils present Neck/C-Spine: COMMON NORMALS: full ROM, no lymphadenopathy and No carotid bruits Chest: OTHER: Mild tenderness to the anterior chest wall. No ecchymosis, no crepitance, no skin rashes. Resp: COMMON NORMALS: normal respiratory effort, No use of accessory muscles and clear to auscultation bilaterally AUSCULTATION: clear to auscultation bilaterally Cardio: COMMON NORMALS: regular rate, regular rhythm, No murmurs present (Cardio) and Peripheral pulses 2+ throughout RATE: regular rate RHYTHM: regular rhythm PERIPHERAL PULSES: Peripheral pulses 2+ throughout GI: COMMON NORMALS: Soft to palpation and non-tender PALPATION: Yes Soft to palpation Back/Pelvis: COMMON NORMALS: thoracic and lumbar spine normal to inspection, no thoracic nor lumbar tenderness and thoraco-lumbar ROM normal Extremity: COMMON NORMALS: normal to inspection, full ROM, no joint enlargement, no clubbing, cyanosis or edema, no calf tenderness and no pedal edema Neuro: COMMON NORMALS: patient oriented x3, moves all extremities and no focal motor deficits SENSORIUM/ORIENTATION: Yes alert CRANIAL NERVES: Yes CN normal except as noted Psych: COMMON NORMALS: mental status grossly normal Skin: COMMON NORMALS: no rashes or lesions noted and turgor normal GENERAL SKIN EXAM: no rashes or lesions noted and turgor normal Course Reevaluation(s): Reevaluation #1: Patient is remained stable while in the emergency department. No evidence of arrhythmia, EKG changes or other concerns. Serial biomarkers are also reassuring. Chest x-ray reveals changes consistent with her prior smoking and COPD history. Reviewed her current findings and their implications, the need to stop her meloxicam, increase her fluid intake to at least a quart of water daily in addition to her other fluids and follow-up with her primary care doctor to repeat her creatinine, potassium and follow her blood pressure parameters. Both she and family acknowledged our discussion. She is stable to be discharged at this time. Time: 21:57 Vital Signs: Vital signs: Vital Signs Temperature 97.8 F 05/03/22 15:22 Pulse Rate 67 05/03/22 20:04 Respiratory Rate 21 H 05/03/22 20:04 Blood Pressure 170/71 05/03/22 20:47 Pulse Oximetry 100 05/03/22 20:04 Oxygen Delivery Me thod 05/03/22 15:22 MDM - Arrhythmia/Palpitations Medical Decision Making Patient made her way to the emergency department because of concerns about fluctuating blood pressure. She has a history of chronic hypertension and has had her regimen altered somewhat in the last few weeks by her primary care doctor in an attempt to get better systolic blood pressure control. She states she gets episodes where her blood pressure elevates to 170 and 180 and she gets associated pounding sensation or odd feeling in her left head. There is no other associated symptoms or focal neurologic deficits or symptoms associated with these episodes. Her clinical examination was reassuring and there there is no stigmata of concern at this time. Work-up was undertaken to ensure no evidence of renal dysfunction, cardiac arrhythmia, etc. She does take meloxicam which may be affecting her blood pressure control but we will await further work-up. Serial biomarkers, resting EKG, cardiac monitoring in the emergency department did not reveal any concerning arrhythmias, changes suggestive of significant hyperkalemia etc. Other findings as noted. We discussed her findings this evening in the emergency department their implications and limitations. We do recommend that she discontinue her meloxicam and follow her blood pressures as that may be a factor in her labile hypertension. Her symptoms do not suggest anything concerning such as ACS, anything PRODUCT DELIVERY SPECIALIST related etc. at this time. I think she becomes aware of her systolic blood pressure when it becomes elevated and its manifesting in her subjective symptoms. She is certainly stable at this time but obviously needs further evaluation and follow-up to ensure her potassium and renal function stay in a normal range. She ultimately may need to have her lisinopril or other medications further adjusted. She voiced understanding of our discussion and was appreciative of care. Medical Records I reviewed the patient's medical records. Lab Data I reviewed the patient's lab results. 05/03/22 17:15 05/03/22 17:15 Radiology Impressions Chest X-Ray 05/03/22 20:03 IMPRESSION: Moderately hyperaerated lungs consistent with deep inspiratory effort vs significant reactive airway disease vs moderate COPD . Laboratory Results WBC 7.4 10^3/uL (4.0-10.0) 05/03/22 17:15 RBC 4.13 10^6/uL (4.1-5.3) 05/03/22 17:15 Hgb 12.7 g/dL (11.5-15.3) 05/03/22 17:15 Hct 38.3 % (37.0-47.0) 05/03/22 17:15 MCV 92.7 fl (81-99) 05/03/22 17:15 MCH 30.8 pg (28.0-34.0) 05/03/22 17:15 MCHC 33.2 g/dL (30.0-36.0) 05/03/22 17:15 RDW 12.6 % (12.1-15.1) 05/03/22 17:15 Plt Count 201 10^3/cmm (130-400) 05/03/22 17:15 MPV 11.4 fL (7.4-10.4) H 05/03/22 17:15 Neut % (Auto) 63.6 % 05/03/22 17:15 Lymph % (Auto) 25.6 % 05/03/22 17:15 [place] % (Auto) 5.9 % 05/03/22 17:15 Eos % (Auto) 3.5 % 05/03/22 17:15 Baso % (Auto) 1.1 % 05/03/22 17:15 Neut # (Auto) 4.72 10^3/uL (1.8-7.7) 05/03/22 17:15 Lymph # (Auto) 1.9 10^3/uL (0.8-4.8) 05/03/22 17:15 [place] # (Auto) 0.4 10^3/uL (0.2-0.9) 05/03/22 17:15 Eos # (Auto) 0.3 10^3/uL (0.0-0.8) 05/03/22 17:15 Baso # (Auto) 0.1 10^3/uL (0.0-0.1) 05/03/22 17:15 Nucleated RBC % (auto) 0 % 05/03/22 17:15 Nucleated RBCs # 0.0 /100WBC 05/03/22 17:15 ESR 1 mm/hr (0-15) 05/03/22 17:15 Sodium 133 mmol/L (136-145) L 05/03/22 17:15 Potassium 5.4 mmol/L (3.5-5.1) H 05/03/22 20:30 Chloride 97 mmol/L (98-107) L 05/03/22 17:15 Carbon Dioxide 26 mmol/L (22-29) 05/03/22 17:15 Anion Gap 15.5 (5-19) 05/03/22 17:15 BUN 17 mg/dL (8-23) 05/03/22 17:15 Creatinine 1.1 mg/dL (0.5-0.9) H 05/03/22 17:15 GFR Calculation 49.1 mL/min (90-130) L 05/03/22 17:15 Glucose 86 mg/dL (65-115) 05/03/22 17:15 Calculated Osmolality 277 mOsm/kg (285-295) L 05/03/22 17:15 Calcium 9.4 mg/dL (8.5-10.5) 05/03/22 17:15 Magnesium 2.1 mg/dL (1.7-2.3) 05/03/22 20:30 Total Bilirubin 0.2 mg/dL (0.15-1.2) 05/03/22 17:15 AST 18 U/L (0-32) 05/03/22 17:15 ALT 12 U/L (0-33) 05/03/22 17:15 Alkaline Phosphatase 89 U/L (35-105) 05/03/22 17:15 Troponin T Baseline 9 ng/L (0-10) 05/03/22 17:15 Troponin T 120 Minute 8.78 ng/L (0-10) 05/03/22 19:17 Delta Troponin T -0.22 ABS# (0-10) L 05/03/22 19:17 NT-Pro-B Natriuret Pep 107 pg/mL (0-125) 05/03/22 17:15 Total Protein 6.7 g/dL (6.6-8.7) 05/03/22 17:15 Albumin 4.6 g/dL (3.5-5.2) 05/03/22 17:15 Globulin 2.1 g/dL (1.3-4.6) 05/03/22 17:15 TSH 1.95 uIU/mL (0.27-4.20) 05/03/22 20:30 EKG Data EKG 1: I personally reviewed and interpreted this EKG as follows: Interpretation: Resting EKG reveals a ventricular rate of 71 bpm. She has normal intervals, normal axis,, no acute ST-T wave changes and no change from tracing dated January 13, 2022. Other EKG comments: Chest X-Ray 05/03/22 20:03 IMPRESSION: Moderately hyperaerated lungs consistent with deep inspiratory effort vs significant reactive airway disease vs moderate COPD . Discharge Plan Discharge Patient Disposition: Home Clinical Impression: Chronic hypertension Condition: Stable Prescriptions: Discontinued meloxicam 15 mg tablet 15 mg PO DAILY No Action nifedipine 60 mg tablet extended release 60 mg PO BEDTIME lisinopril 40 mg tablet 40 mg PO DAILY aspirin 325 mg Tablet 325 mg PO DAILY omeprazole 40 mg capsule,delayed release(DR/EC) 40 mg PO DAILY omega 1-hfd-bya-fish oil [Fish Oil] 300-1,000 mg Capsule 1 cap PO DAILY Discharge Orders: Discharge ED (Routine); Ordered 05/03/22 Ordered By: Elvis Cabrera Referrals: Andrew Alfaro DO [Primary Care Provider] - 7-10 days (As scheduled follow-up on borderline hyperkalemia and blood pressure) Discharge Diet: Usual diet and Low Salt Discharge Activity: Resume usual activity Patient Instructions: Opioid Safety, Pain Management Activity Restrictions/Additional Instructions: As we discussed while you are in the emergency department we did not find any evidence this evening and suggest any ongoing emergency medical condition. We also reviewed the fact that your potassium was slightly elevated. We do recommend that you stop your meloxicam as that may or may not be a factor in difficult blood pressure control and certainly can affect your kidneys long- term. We recommend you drink at least a quart and perhaps more of water daily in addition to your other fluid intake. We recommend that you follow-up with your primary care doctor as scheduled in the next 10 to 12 days for repeat blood test to evaluate your potassium and other lab parameters and adjust medications as indicated. If you develop any worrisome symptoms you may return to this emergency department at any time for reevaluation. Coding Level of Care Code ED Mold Setter for Mono Rand
[2022-05-03 19:54] LABS: Troponin 5 2HR 8.78 ng/L (0-10)
[2022-05-03 20:03] LABS: Troponin 5 2HR Delta -0.22 ABS# (0-10)
--- NOTE | 2022-05-03 20:03 | XRR_ITS ---
PROCEDURE INFORMATION: Exam: XR Chest Exam date and time: 05/03/2022 8:13 PM Age: 72 years old Clinical indication: Pain; Chest pressure; Additional info: Cp TECHNIQUE: Imaging protocol: Radiologic exam of the chest. Views: 1 view. COMPARISON: CT chest w con* [id number] 09/08/2019 1:29 PM FINDINGS: Lungs: Moderately hyperaerated lungs consistent with deep inspiratory effort vs significant reactive airway disease vs moderate COPD . Pleural spaces: Unremarkable. No pleural effusion. No pneumothorax. Heart/Mediastinum: Unremarkable. No cardiomegaly. Bones/joints: Unremarkable. XR/XR chest 1V portable [id number] IMPRESSION: Moderately hyperaerated lungs consistent with deep inspiratory effort vs significant reactive airway disease vs moderate COPD .
[2022-05-03 20:04] VITALS: PULSE 67; RESP 21; O2SAT 100
[2022-05-03 20:09] VITALS: BP 181/68
[2022-05-03 20:30] LABS: Erythrocyte Sedimentation Rate 1 mm/hr (0-15)
[2022-05-03 20:47] VITALS: BP 170/71
[2022-05-03 21:01] LABS: Magnesium 2.1 mg/dL (1.7-2.3); Potassium 5.4 mmol/L (3.5-5.1); Thyroid Stimulating Hormone 1.95 uIU/mL (0.27-4.20)
[2022-05-03 22:00] VITALS: BP 176/72; PULSE 68; RESP 16; O2SAT 95
== END 2022-05-03 22:18 | disposition home or self-care (01) ==
PROVIDERS: Physician Assistant; Emergency Provider Emergency Medicine; PCP Electrodiagnostic Medicine
DX: I10 Essential (primary) hypertension (principal); Z79.82 Long term (current) use of aspirin; Z87.891 Personal history of nicotine dependence
CPT/HCPCS: 36415; 71045; 80048; 80053; 83735; 83880; 84132; 84443; 84484; 85025; 85651; 93005; 99285

== ENCOUNTER 2024-01-22 13:51 | Outpatient (RCR) | payer MEDICARE, OTHER, SELFPAY | END 2024-02-05 23:59 | disposition home or self-care (01) | LOC: SPT 13:51 | PROVIDERS: Visit Provider Electrodiagnostic Medicine | DX: R32 Unspecified urinary incontinence (principal); N39.46 Mixed incontinence | CPT/HCPCS: 97161 ==

== ENCOUNTER 2024-02-06 06:30 | Outpatient (RCR) | payer MEDICARE, OTHER, SELFPAY | END 2024-03-07 23:59 | disposition home or self-care (01) | LOC: SPT 06:30 | PROVIDERS: Visit Provider Electrodiagnostic Medicine | DX: R32 Unspecified urinary incontinence (principal); N39.46 Mixed incontinence | CPT/HCPCS: 97110; 97530 ==

== ENCOUNTER 2024-03-08 06:30 | Outpatient (RCR) | payer MEDICARE, OTHER, SELFPAY | END 2024-03-20 11:21 | disposition home or self-care (01) | LOC: SPT 06:30 | PROVIDERS: Visit Provider Electrodiagnostic Medicine | DX: R32 Unspecified urinary incontinence (principal); N39.46 Mixed incontinence | CPT/HCPCS: 97110 ==

== ENCOUNTER 2024-05-30 08:25 | Outpatient (CLI) | payer MEDICARE, OTHER, SELFPAY ==
--- NOTE | 2024-05-30 08:27 | MM_ITS ---
WS: [id number] BILATERAL SCREENING DIGITAL TOMOSYNTHESIS MAMMOGRAM WITH CAD HISTORY: SCREENING COMPARISON: 01/14/2020, 12/18/2019, 07/07/2016 Bilateral CC and MLO views with tomosynthesis and synthetic mammography submitted. Computer aided detection analyzed. Breast composition: The breasts are extremely dense, which lowers the sensitivity of mammography. No suspicious masses, microcalcifications or architectural distortion. Markedly dense breast. No asymmetry or change. Benign calcification medial RIGHT breast. MM/MM scr BI tomosynthesis [id number] IMPRESSION: BI-RADS: 2 - Benign FOLLOW UP: 1 Year Follow-up
== END 2024-05-30 08:26 | disposition home or self-care (01) ==
PROVIDERS: PCP Electrodiagnostic Medicine; Visit Provider Electrodiagnostic Medicine
DX: Z12.31 Encounter for screening mammogram for malignant neoplasm of breast (principal); R92.343 Mammographic extreme density, bilateral breasts; R92.1 Mammographic calcification found on diagnostic imaging of breast
CPT/HCPCS: 77063; 77067